=== PATIENT | female | born 1975 | race Caucasian/White ===

== ENCOUNTER 2022-04-24 14:02 | Emergency (ER) | payer MEDICAID ==
[~2022-04-24] VITALS: Ht 157.5 cm; Wt 72.7 kg
[2022-04-24 14:22] LABS: BASOPHILS # (AUTO) 0.1 X10'3 (0-0.2); BASOPHILS % (AUTO) 1.3 % (0-1); EOSINOPHILS # (AUTO) 0.2 X10'3 (0-0.9); EOSINOPHILS % (AUTO) 3.7 % (0-6); HEMATOCRIT 42.7 % (35.0-45.0); LYMPHOCYTES % (AUTO) 29.7 % (21-51); MEAN CORPUSCULAR HEMOGLOBIN 31.6 PG (27.0-31.0); MEAN CORPUSCULAR HGB CONC 32.8 g/dL (33.0-36.5); MEAN CORPUSCULAR VOLUME 96.2 FL (78-98); MEAN PLATELET VOLUME 10.6 FL (7.4-10.4); MONOCYTES # (AUTO) 0.5 X10'3 (0-0.9); MONOCYTES % (AUTO) 7.3 % (2-12); NEUTROPHILS # (AUTO) 3.8 X10'3 (1.8-7.7); PLATELET COUNT 225 X10'3 (140-440); RED BLOOD COUNT 4.44 X10'6 (4.20-5.60); WHITE BLOOD COUNT 6.6 X10'3 (4.5-11.0)
[2022-04-24 14:37] LABS: ALANINE AMINOTRANSFERASE 35 U/L (12-78); ALBUMIN 4.1 G/DL (3.4-5.0); ALKALINE PHOSPHATASE 80 IU/L (46-116); ANION GAP 7 (8-16); ASPARTATE AMINO TRANSFERASE 26 U/L (10-37); BLOOD UREA NITROGEN 7 MG/DL (7-18); BUN/CREATININE RATIO 7.9 (6.6-38.0); CHLORIDE 102 MMOL/L (99-107); CREATININE 0.89 MG/DL (0.40-0.90); GLUCOSE 133 MG/DL (70-104); POTASSIUM 3.7 MMOL/L (3.5-5.1); SODIUM 136 MMOL/L (135-145); TOTAL PROTEIN 8.4 G/DL (6.4-8.2); eGFR 68 ML/MIN
--- NOTE | 2022-04-24 14:37 | NUR ---
PER ARVIND ROBB PT OK TO WAIT FOR RESULTS IN LOBBY
[2022-04-24 14:39] LABS: MAGNESIUM 2.2 MG/DL (1.5-2.4)
[2022-04-24 17:03] VITALS: BP 134/87
[2022-04-24] MEDS ORDERED: PRED10TA23 PO (17:25)
== END 2022-04-24 17:11 | disposition home or self-care (01) ==
LOC: ER 14:03
DX: M32.9 Systemic lupus erythematosus, unspecified (principal); R07.89 Other chest pain
CPT/HCPCS: 36415; 71045; 80053; 83735; 83880; 84484; 85025; 93005; 99285

== ENCOUNTER 2022-11-03 12:25 | Emergency (ER) | payer MEDICAID ==
[~2022-11-03] VITALS: Ht 157.5 cm; Wt 67.3 kg
[2022-11-03] MEDS ORDERED: ondansetron/PF 4mg/2ml inj IV ONE (12:40)
[2022-11-03] MEDS ORDERED: normal saline 1000ML IV soln IVB ONE (12:40)
--- NOTE | 2022-11-03 12:48 | NUR ---
EKG BEING COMPLETED. RN WILL OBTAIN IV ONCE COMPLETE.
[2022-11-03 13:05] LABS: BASOPHILS % (AUTO) 0.6 % (0-1); EOSINOPHILS # (AUTO) 0.2 X10'3 (0-0.9); HEMATOCRIT 40.7 % (35.0-45.0); HEMOGLOBIN 13.6 g/dl (12.0-16.0); LYMPHOCYTES # (AUTO) 1.8 X10'3 (1.1-4.8); MEAN CORPUSCULAR HEMOGLOBIN 32.2 PG (27.0-31.0); MEAN CORPUSCULAR HGB CONC 33.3 g/dL (33.0-36.5); MEAN CORPUSCULAR VOLUME 96.6 FL (78-98); MONOCYTES # (AUTO) 1.3 X10'3 (0-0.9); MONOCYTES % (AUTO) 15.2 % (2-12); NEUTROPHILS # (AUTO) 5.1 X10'3 (1.8-7.7); NEUTROPHILS % (AUTO) 61.2 % (42-75); PLATELET COUNT 295 X10'3 (140-440); RED BLOOD COUNT 4.22 X10'6 (4.20-5.60); RED CELL DISTRIBUTION WIDTH 15.9 % (11.5-14.5); WHITE BLOOD COUNT 8.3 X10'3 (4.5-11.0)
[2022-11-03] MEDS ORDERED: meclizine 12.5mg tablet PO ONE (13:10)
[2022-11-03 13:30] LABS: ALANINE AMINOTRANSFERASE 12 U/L (12-78); ALBUMIN 3.4 G/DL (3.4-5.0); ALBUMIN/GLOBULIN RATIO 0.8 (1.1-1.5); ALKALINE PHOSPHATASE 82 IU/L (46-116); ANION GAP 13 (8-16); ASPARTATE AMINO TRANSFERASE 11 U/L (10-37); BILIRUBIN,TOTAL 1.9 MG/DL (0.1-1.0); BLOOD UREA NITROGEN 7 MG/DL (7-18); BUN/CREATININE RATIO 9.1 (10.0-20.0); CALCIUM 9.3 MG/DL (8.5-10.1); CHLORIDE 95 MMOL/L (99-107); CREATININE 0.77 MG/DL (0.40-0.90); GLUCOSE 105 MG/DL (70-104); MAGNESIUM 1.7 MG/DL (1.5-2.4); PHOSPHORUS 2.4 MG/DL (2.3-4.5); PRO BRAIN NATRIURETIC PEPTIDE 56 PG/ML (0-125); SODIUM 134 MMOL/L (135-145); TOTAL CARBON DIOXIDE 25.7 MMOL/L (24-32); TOTAL PROTEIN 7.6 G/DL (6.4-8.2); eCRCL 70 ML/MIN; eGFR 80 ML/MIN
[2022-11-03 13:34] LABS: POTASSIUM 2.9 MMOL/L (3.5-5.1)
[2022-11-03] MEDS ORDERED: potassium Cl 40MEQ/1/2NS 520ml 520 ML IV ONE (13:35)
[2022-11-03] MEDS ORDERED: METO-292 PO (13:36)
[2022-11-03] MEDS ORDERED: ONDA8TAB13 PO (13:36)
[2022-11-03] MEDS ORDERED: MECL-159 PO (13:36)
[2022-11-03 13:44] LABS: PLATELET ESTIMATE NORMAL; TOTAL CELLS COUNTED 100
--- NOTE | 2022-11-03 13:45 | NUR ---
THIS RN WAS UNABLE TO OBTAIN IV BY US. JOSELYN LANCE IS ATTEMPTING TO OBTAIN IV US AT THIS TIME.
[2022-11-03 13:46] LABS: STOMATOCYTES FEW
[2022-11-03 14:22] LABS: HCG SERUM QL NEGATIVE
[2022-11-03 15:27] LABS: BILIRUBIN,URINE NEGATIVE (Neg); CLARITY,URINE CLEAR (Clear); COLOR,URINE STRAW (Yellow); GLUCOSE, URINE NEGATIVE (Neg); KETONES,URINE NEGATIVE (Neg); LEUKOCYTE ESTERASE ,URINE NEGATIVE (Neg); NITRITES, URINE NEGATIVE (Neg); OCCULT BLOOD,URINE NEGATIVE (Neg); PH,URINE 6.5 (4.8-8.0); PROTEIN,URINE NEGATIVE (Neg); UROBILINOGEN,URINE 0.2 E.U/dL (0.2-1.0)
[2022-11-03 15:31] LABS: UA COLLECTION TYPE CLN CATCH MIDSTREAM
[2022-11-03] MEDS ORDERED: LIDOcaine Viscous 15ml cup MM ONE (18:50)
[2022-11-03] MEDS ORDERED: mag hydrox/Alum hydrox/simeth 30ml oral suspension PO ONE (18:50)
[2022-11-03 20:31] VITALS: BP 103/66; PULSE 85; RESP 18; TEMP 98; O2SAT 97
== END 2022-11-03 20:34 | disposition home or self-care (01) ==
LOC: ER 12:26
DX: R11.2 Nausea with vomiting, unspecified (principal); R42 Dizziness and giddiness; R19.7 Diarrhea, unspecified
CPT/HCPCS: 36415; 71045; 80053; 81003; 83735; 83880; 84100; 84484; 84703; 85007; 85025; 93005; 96365; 96375; 99285; J2405; J3480; J7030; J8597; A6258

== ENCOUNTER 2022-12-02 16:16 | Emergency (ER) | payer MEDICAID ==
[~2022-12-02] VITALS: Ht 154.9 cm; Wt 70.2 kg
[~2022-12-02 16:16] MED LIST: MECL-302 PO; METO-292 PO; ONDA8TAB13 PO
[2022-12-02 16:24] VITALS: BP 141/91; PULSE 99; RESP 16; TEMP 98.5; O2SAT 95
[2022-12-02 16:39] LABS: BASOPHILS # (AUTO) 0.1 X10'3 (0-0.2); BASOPHILS % (AUTO) 0.6 % (0-1); EOSINOPHILS # (AUTO) 0.1 X10'3 (0-0.9); EOSINOPHILS % (AUTO) 0.5 % (0-6); HEMATOCRIT 39.2 % (35.0-45.0); HEMOGLOBIN 12.7 g/dl (12.0-16.0); LYMPHOCYTES # (AUTO) 2.4 X10'3 (1.1-4.8); LYMPHOCYTES % (AUTO) 18.3 % (21-51); MEAN CORPUSCULAR HEMOGLOBIN 31.4 PG (27.0-31.0); MEAN CORPUSCULAR HGB CONC 32.4 g/dL (33.0-36.5); MEAN CORPUSCULAR VOLUME 96.7 FL (78-98); MEAN PLATELET VOLUME 9.3 FL (7.4-10.4); MONOCYTES # (AUTO) 1.2 X10'3 (0-0.9); NEUTROPHILS # (AUTO) 9.3 X10'3 (1.8-7.7); NEUTROPHILS % (AUTO) 71.6 % (42-75); PLATELET COUNT 274 X10'3 (140-440); RED BLOOD COUNT 4.05 X10'6 (4.20-5.60); RED CELL DISTRIBUTION WIDTH 15.1 % (11.5-14.5); WHITE BLOOD COUNT 13.1 X10'3 (4.5-11.0)
[2022-12-02 17:00] LABS: ALANINE AMINOTRANSFERASE 17 U/L (12-78); ALBUMIN 3.2 G/DL (3.4-5.0); ALBUMIN/GLOBULIN RATIO 0.8 (1.1-1.5); ALKALINE PHOSPHATASE 95 IU/L (46-116); ANION GAP 11 (8-16); ASPARTATE AMINO TRANSFERASE 16 U/L (10-37); BILIRUBIN,TOTAL 0.6 MG/DL (0.1-1.0); BLOOD UREA NITROGEN 15 MG/DL (7-18); BUN/CREATININE RATIO 18.1 (10.0-20.0); CALCIUM 8.7 MG/DL (8.5-10.1); CHLORIDE 108 MMOL/L (99-107); CREATININE 0.83 MG/DL (0.40-0.90); GLUCOSE 92 MG/DL (70-104); POTASSIUM 3.7 MMOL/L (3.5-5.1); SODIUM 143 MMOL/L (135-145); TOTAL CARBON DIOXIDE 24.1 MMOL/L (24-32); TOTAL PROTEIN 7.1 G/DL (6.4-8.2); eCRCL 62 ML/MIN; eGFR 73 ML/MIN
[2022-12-02 17:06] LABS: PRO BRAIN NATRIURETIC PEPTIDE < 30 PG/ML (0-125)
== END 2022-12-02 21:01 | disposition left against medical advice (07) ==
LOC: ER 16:17
DX: R07.89 Other chest pain (principal); Z53.21 Procedure and treatment not carried out due to patient leaving prior to being seen by health care provider
CPT/HCPCS: 36415; 71045; 80053; 83880; 84484; 85025; 93005; 99281

== ENCOUNTER 2023-05-31 02:19 | Inpatient (IN) | payer MEDICAID ==
[~2023-05-31] VITALS: Ht 157.5 cm; Wt 106.8 kg
[2023-05-31] VITALS (12 sets, daily range): BP systolic 97–150; BP diastolic 69–107; PULSE 112–136; RESP 20–41; O2SAT 89–100
[2023-05-31] MEDS: normal saline 1000ML IV soln IV ONE (03:45)
[2023-05-31] MEDS: LORazepam 2 mg/ml vial IV ONE (03:57)
[2023-05-31] MEDS: ondansetron/PF 4mg/2ml inj IV ONE ×2 (03:57→06:04)
[2023-05-31] MEDS: pantoprazole 40 MG vial IV ONE (03:58)
[2023-05-31] MEDS: dexamethasone sod phosphate 10mg/ml inj IV STA (03:58)
[2023-05-31 04:15] LABS: ALBUMIN 2.5 G/DL (3.4-5.0); ANION GAP 25 (8-16); BLOOD UREA NITROGEN 13 MG/DL (7-18); BUN/CREATININE RATIO 3.9 (10.0-20.0); CALCIUM 7.1 MG/DL (8.5-10.1); CHLORIDE 76 MMOL/L (99-107); CREATININE 3.37 MG/DL (0.40-0.90); GLUCOSE 84 MG/DL (70-104); LIPASE 43 U/L (16-77); POTASSIUM 4.1 MMOL/L (3.5-5.1); PRO BRAIN NATRIURETIC PEPTIDE 12598 PG/ML (0-125); eCRCL 16 ML/MIN; eGFR 15 ML/MIN
[2023-05-31 04:21] LABS: SODIUM 111 MMOL/L (135-145); TOTAL CARBON DIOXIDE 10.3 MMOL/L (24-32)
[2023-05-31 04:22] LABS: MAGNESIUM 0.7 MG/DL (1.5-2.4)
[2023-05-31] MEDS: LidoCAINE 2% Topical Jelly 11mL syringe TOP ONE ×2 (04:30→15:26)
[2023-05-31 04:39] LABS: BASOPHILS % (AUTO) 0.1 % (0-1); EOSINOPHILS # (AUTO) 0.1 X10'3 (0-0.9); EOSINOPHILS % (AUTO) 0.4 % (0-6); HEMATOCRIT 38.6 % (35.0-45.0); HEMOGLOBIN 12.9 g/dl (12.0-16.0); LYMPHOCYTES # (AUTO) 0.4 X10'3 (1.1-4.8); LYMPHOCYTES % (AUTO) 1.5 % (21-51); MEAN CORPUSCULAR HEMOGLOBIN 33.1 PG (27.0-31.0); MEAN CORPUSCULAR HGB CONC 33.3 g/dL (33.0-36.5); MEAN CORPUSCULAR VOLUME 99.4 FL (78-98); MEAN PLATELET VOLUME 9.1 FL (7.4-10.4); MONOCYTES # (AUTO) 0.3 X10'3 (0-0.9); MONOCYTES % (AUTO) 1.3 % (2-12); NEUTROPHILS # (AUTO) 25.1 X10'3 (1.8-7.7); NEUTROPHILS % (AUTO) 96.7 % (42-75); PLATELET COUNT 106 X10'3 (140-440); RED BLOOD COUNT 3.89 X10'6 (4.20-5.60); RED CELL DISTRIBUTION WIDTH 14.2 % (11.5-14.5)
[2023-05-31 04:48] LABS: WHITE BLOOD COUNT 25.9 X10'3 (4.5-11.0)
[2023-05-31] MEDS: normal saline 1000ml 1,000 ML IV SCH (04:50)
[2023-05-31 05:16] LABS: ABG HCO3 10.6 mmol/L (22.0-26.0); ABG PCO2 (T) 19.5 mmHg (32.0-45.0); ABG PH (T) 7.352 (7.350-7.450); ABG PO2 (T) 76.8 mmHg (75.0-100.0); FCOHb 0.3 % (0.0-3.9); FLOW 6 L/min; FMetHb 0.3 % (0.0-1.5); FO2Hb 94.4 % (94-97); MODE NASAL CANNULA; PATIENT TEMPERATURE 36.5; TOTAL HEMOGLOBIN 11.7 G/dl (12.0-16.0)
[2023-05-31] MEDS: sodium bicarbonate (8.4%) 1 mEq/ml syringe IV ONE (05:24)
[2023-05-31] MEDS: piperacillin/tazo 3.375gm/50ml 50 ML IV ONE (05:28)
[2023-05-31] MEDS: magnesium 2GM in 50ml NS 50 ML IV ONE (05:30)
[2023-05-31] MEDS: diphenhydrAMINE 50 mg/ml inj IV ONE (06:03)
[2023-05-31] MEDS: linezolid 600mg/300ml PREMIX 300 ML IV ONE (06:16)
[2023-05-31 06:43] LABS: BILIRUBIN,URINE NEGATIVE (Neg); CLARITY,URINE CLOUDY (Clear); COLOR,URINE YELLOW (Yellow); GLUCOSE, URINE NEGATIVE (Neg); KETONES,URINE NEGATIVE (Neg); LEUKOCYTE ESTERASE ,URINE MODERATE (Neg); NITRITES, URINE NEGATIVE (Neg); OCCULT BLOOD,URINE LARGE (Neg); PH,URINE 6.5 (4.8-8.0); PROTEIN,URINE >=300 mg/dl (Neg); UROBILINOGEN,URINE 0.2 E.U/dL (0.2-1.0)
[2023-05-31 06:48] LABS: URINE HCG NEGATIVE (NEG)
[2023-05-31 06:50] LABS: UA COLLECTION TYPE FOLEY CATH
[2023-05-31 06:57] LABS: BACTERIA,URINE 4+ /HPF (Neg); CHLORIDE,URINE RANDOM < 50 MEQ/L; MUCUS STRANDS NONE SEEN /LPF (Neg); SODIUM,URINE RANDOM 51 MEQ/L; SQUAMOUS EPITHELIAL CELL,UR FEW /LPF (FEW); WBC CLUMPS,URINE MANY /HPF (NEGATIVE); WBC,URINE TNTC /HPF (0-4)
[2023-05-31] MEDS: levetiracetam inj 1,000 MG in normal saline 100ml IV soln 100 ML IV ONE (07:33)
[2023-05-31] MEDS: metroNIDAZOLE-Flagyl 500mg/NS 100 ML IV SCH (07:55)
[2023-05-31 07:58] LABS: OSMOLALITY UA 169 MOSM/K (50-1400)
[2023-05-31 08:00] LABS: PLATELET ESTIMATE DECREASED; TOTAL CELLS COUNTED 100
[2023-05-31] MEDS ORDERED: dextrose 50%-water 50ml dispensing syringe IV ONE (08:00)
[2023-05-31] MEDS ORDERED: sod chloride 0.9% 10ml flush syringe IV ONE (08:00)
[2023-05-31] MEDS ORDERED: etomidate 2mg/ml inj. ONE (08:00)
[2023-05-31 08:01] LABS: POLYCHROMASIA FEW; TOXIC GRANULATION 1+; TOXIC VACUOLATION 1+
[2023-05-31] MEDS: LORazepam 2 mg/ml vial IV STA (08:06)
[2023-05-31] MEDS: metoclopramide 5 mg/ml inj IV STA (08:07)
[2023-05-31 08:20] LABS: URINE AMPHETAMINE SCREEN NEGATIVE (Neg); URINE BARBITUATE SCREEN NEGATIVE (Neg); URINE BENZODIAZEPINES SCREEN NEGATIVE (Neg); URINE CANNABINOID SCREEN POSITIVE (Neg); URINE COCAINE SCREEN NEGATIVE (Neg); URINE METHADONE SCREEN NEGATIVE (Neg); URINE OPIATE SCREEN NEGATIVE (Neg); URINE PHENCYCLIDINE SCREEN NEGATIVE (Neg)
[2023-05-31] MEDS: acetaminophen 650mg rectal suppository RC STA (08:23)
[2023-05-31] MEDS: succinylcholine 20mg/ml inj IV ONE (08:47)
[2023-05-31] MEDS ORDERED: PRE1T PO (09:17)
[2023-05-31] MEDS ORDERED: CYAN10007 IM (09:17)
[2023-05-31] MEDS ORDERED: RIVA20TA PO (09:17)
[2023-05-31] MEDS ORDERED: GABA300C PO (09:17)
[2023-05-31] MEDS ORDERED: PRE5T PO (09:17)
[2023-05-31] MEDS ORDERED: HYDR200T73 PO (09:17)
[2023-05-31] MEDS ORDERED: MODA100T31 PO (09:17)
[2023-05-31] MEDS ORDERED: MECL-302 PO (09:17)
[2023-05-31] MEDS ORDERED: OMEP20CA16 PO (09:17)
[2023-05-31] MEDS: midazolam 1 mg/ML 2ml injection ONE (09:20)
[2023-05-31] MEDS: midazolam 1 mg/ML 2ml injection IV STA (09:20)
[2023-05-31] MEDS ORDERED: propofol (Diprivan) 10mg/ml 100ml bottle IV ONE (09:26)
[2023-05-31] MEDS ORDERED: midazolam 100mg in NS 100ml 100 ML IV SCH (09:30)
[2023-05-31 09:31] LABS: ABG BASE EXCESS -13.1 mmol/L (-2.0-2.0); ABG HCO3 10.5 mmol/L (22.0-26.0); ABG OXYGEN SATURATION 97.5 % (94-97); ABG PCO2 (T) 22.7 mmHg (32.0-45.0); ABG PH (T) 7.295 (7.350-7.450); ABG PO2 (T) 127.8 mmHg (75.0-100.0); ALLEN'S TEST POSITIVE; FCOHb 0.3 % (0.0-3.9); FHHb 2.5 % (0.0-5.0); FMetHb 0.3 % (0.0-1.5); FO2Hb 96.9 % (94-97); MODE VENT - AC/PRVC; PATIENT TEMPERATURE 39.9; PEEP 5 cm H2O; RESPIRATORY RATE 18 b/min; TIDAL VOLUME 475 mL
[2023-05-31] MEDS: FENTANYL-0.9 % NACL/PF 100 ML IV SCH (09:47)
[2023-05-31] MEDS: propofol 1000mg/100ml bottle 100 ML IV SCH (09:48)
[2023-05-31] MEDS ORDERED: ringers solution, lactated 500ml IV solution IV ONE (11:00)
[2023-05-31 11:19] LABS: BASOPHILS % (AUTO) 0.1 % (0-1); EOSINOPHILS # (AUTO) 0.1 X10'3 (0-0.9); EOSINOPHILS % (AUTO) 1.2 % (0-6); HEMATOCRIT 39.5 % (35.0-45.0); LYMPHOCYTES # (AUTO) 0.2 X10'3 (1.1-4.8); LYMPHOCYTES % (AUTO) 1.7 % (21-51); MEAN CORPUSCULAR HEMOGLOBIN 32.9 PG (27.0-31.0); MEAN CORPUSCULAR HGB CONC 32.9 g/dL (33.0-36.5); MEAN PLATELET VOLUME 8.6 FL (7.4-10.4); MONOCYTES # (AUTO) 0.1 X10'3 (0-0.9); NEUTROPHILS # (AUTO) 11.1 X10'3 (1.8-7.7); PLATELET COUNT 59 X10'3 (140-440); RED BLOOD COUNT 3.94 X10'6 (4.20-5.60); RED CELL DISTRIBUTION WIDTH 14.3 % (11.5-14.5); WHITE BLOOD COUNT 11.6 X10'3 (4.5-11.0)
[2023-05-31] MEDS: ringers solution, lacted 1,000 ML IV ONE (11:22)
[2023-05-31] MEDS: NORepinephrine 8mg/ 250ml NS 250 ML IV SCH (11:50)
[2023-05-31] MEDS: ringers solution, lacted 1,000 ML IV SCH ×2 (11:56→12:56)
[2023-05-31 12:05] LABS: ALANINE AMINOTRANSFERASE 34 U/L (12-78); ALBUMIN 1.5 G/DL (3.4-5.0); ALBUMIN/GLOBULIN RATIO 0.6 (1.1-1.5); ALKALINE PHOSPHATASE 86 IU/L (46-116); ANION GAP 18 (8-16); ASPARTATE AMINO TRANSFERASE 56 U/L (10-37); BILIRUBIN,TOTAL 1.5 MG/DL (0.1-1.0); BLOOD UREA NITROGEN 12 MG/DL (7-18); BUN/CREATININE RATIO 3.7 (10.0-20.0); CHLORIDE 85 MMOL/L (99-107); CREATININE 3.21 MG/DL (0.40-0.90); GLUCOSE 65 MG/DL (70-104); POTASSIUM 3.8 MMOL/L (3.5-5.1); eCRCL 17 ML/MIN; eGFR 15 ML/MIN
[2023-05-31 12:15] LABS: CALCIUM 5.6 MG/DL (8.5-10.1); SODIUM 116 MMOL/L (135-145); TOTAL CARBON DIOXIDE 12.6 MMOL/L (24-32)
[2023-05-31] MEDS: ringers solution, lacted 1,000 ML IV STA ×2 (12:54→12:55)
[2023-05-31] MEDS: albumin (human) 25% 100 ML IV solution IV STA (13:24)
[2023-05-31] MEDS ORDERED: magnesium hydroxide 30ml (MOM) UD suspension PO PRN (14:35)
[2023-05-31] MEDS ORDERED: acetaminophen 325mg tablet PO PRN ×2 (14:35)
[2023-05-31] MEDS: LIDOcaine 2% 10ml TOPICAL JELLY (Urojet) TP ONE (15:03)
[2023-05-31] MEDS: albumin (Human) 5% 250ml 250 ML IV SCH (15:03)
[2023-05-31] MEDS: heparin, porcine 5000 units/ml vial SQ SCH (16:00)
[2023-05-31] MEDS: piperacillin/tazo 3.375gm/50ml 50 ML IV SCH (17:24)
[2023-05-31] MEDS: dextrose 50%-water 50ml dispensing syringe IV STA (19:06)
[2023-05-31] MEDS ORDERED: DEXTROSE 20% IN WATER 500mL 500 ML IV SCH (19:10)
[2023-05-31] MEDS: WATER IV SCH (20:39)
[2023-05-31] MEDS: DEXTROSE 20% IV SCH (20:39)
[2023-05-31] MEDS: linezolid 600mg/300ml PREMIX 300 ML IV SCH (20:41)
[2023-05-31 23:34] LABS: ALBUMIN 3.3 G/DL (3.4-5.0); BLOOD UREA NITROGEN 13 MG/DL (7-18); BUN/CREATININE RATIO 3.8 (10.0-20.0); GLUCOSE 159 MG/DL (70-104); MAGNESIUM 1.1 MG/DL (1.5-2.4); PHOSPHORUS 4.1 MG/DL (2.3-4.5); eCRCL 16 ML/MIN; eGFR 14 ML/MIN
[2023-05-31 23:57] LABS: ANION GAP 24 (8-16); CHLORIDE 83 MMOL/L (99-107); POTASSIUM 3.8 MMOL/L (3.5-5.1)
[2023-06-01] VITALS (32 sets, daily range): BP systolic 73–134; BP diastolic 54–86; PULSE 100–132; RESP 17–31; O2SAT 90–99
[2023-06-01 00:05] LABS: SODIUM 116 MMOL/L (135-145); TOTAL CARBON DIOXIDE 9.4 MMOL/L (24-32)
[2023-06-01] MEDS: NORepinephrine inj. 32 MG in normal saline 250ml IV soln 218 ML IV SCH (00:05)
[2023-06-01 00:06] LABS: CALCIUM 5.9 MG/DL (8.5-10.1)
[2023-06-01] MEDS: hydrocortisone sod succ/PF 100mg/2ml inj. IV SCH (00:21)
[2023-06-01] MEDS ORDERED: magnesium 2GM in 50ml NS 50 ML IV PRN (00:30)
[2023-06-01] MEDS ORDERED: dextrose 50%-water 250 ML in Dextrose 10%-water IV solution 750 ML IV PRN (00:30)
[2023-06-01] MEDS: CALCIUM GLUC 1gm/50ml NACL,iso 50 ML IV ONE (00:43)
[2023-06-01] MEDS: magnesium 4gm in 100ml NS 100 ML IV PRN (00:46)
[2023-06-01] MEDS: sodium bicarbonate (8.4%) inj. 150 MEQ in dextrose 5%-water 1,000 ML IV SCH (01:20)
[2023-06-01 03:16] LABS: ABG HCO3 11.4 mmol/L (22.0-26.0); ABG OXYGEN SATURATION 92.9 % (94-97); ABG PCO2 (T) 26.5 mmHg (32.0-45.0); ABG PH (T) 7.255 (7.350-7.450); ABG PO2 (T) 75.1 mmHg (75.0-100.0); ALLEN'S TEST Modified; FCOHb 0.3 % (0.0-3.9); FHHb 7.1 % (0.0-5.0); FMetHb 0.3 % (0.0-1.5); FO2Hb 92.3 % (94-97); MODE VENT - PRVC; PEEP 5 cm H2O; RESPIRATORY RATE 18 b/min; TIDAL VOLUME 475 mL
[2023-06-01 06:18] LABS: BASOPHILS % (AUTO) 0.1 % (0-1); HEMATOCRIT 29.9 % (35.0-45.0); LYMPHOCYTES # (AUTO) 0.4 X10'3 (1.1-4.8); MONOCYTES # (AUTO) 0.8 X10'3 (0-0.9); RED BLOOD COUNT 3.01 X10'6 (4.20-5.60)
[2023-06-01 06:23] LABS: EOSINOPHILS % (AUTO) 14.8 % (0-6); HEMOGLOBIN 9.9 g/dl (12.0-16.0); MEAN CORPUSCULAR HEMOGLOBIN 32.8 PG (27.0-31.0); MEAN CORPUSCULAR VOLUME 99.3 FL (78-98); MEAN PLATELET VOLUME 9.2 FL (7.4-10.4); MONOCYTES % (AUTO) 1.9 % (2-12); NEUTROPHILS # (AUTO) 33.2 X10'3 (1.8-7.7); NEUTROPHILS % (AUTO) 82.2 % (42-75); RED CELL DISTRIBUTION WIDTH 14.5 % (11.5-14.5)
[2023-06-01 06:31] LABS: PLATELET COUNT 41 X10'3 (140-440); WHITE BLOOD COUNT 40.4 X10'3 (4.5-11.0)
[2023-06-01 06:35] LABS: ALANINE AMINOTRANSFERASE 38 U/L (12-78); ALBUMIN/GLOBULIN RATIO 1.4 (1.1-1.5); ALKALINE PHOSPHATASE 58 IU/L (46-116); ANION GAP 23 (8-16); ASPARTATE AMINO TRANSFERASE 86 U/L (10-37); BILIRUBIN,TOTAL 2.8 MG/DL (0.1-1.0); BLOOD UREA NITROGEN 12 MG/DL (7-18); BUN/CREATININE RATIO 3.6 (10.0-20.0); CALCIUM 6.3 MG/DL (8.5-10.1); CHLORIDE 85 MMOL/L (99-107); CREATININE 3.37 MG/DL (0.40-0.90); GLUCOSE 142 MG/DL (70-104); MAGNESIUM 2.3 MG/DL (1.5-2.4); PHOSPHORUS 4.1 MG/DL (2.3-4.5); POTASSIUM 4.1 MMOL/L (3.5-5.1); TOTAL PROTEIN 5.2 G/DL (6.4-8.2); eCRCL 16 ML/MIN; eGFR 15 ML/MIN
[2023-06-01 06:54] LABS: SODIUM 120 MMOL/L (135-145); TOTAL CARBON DIOXIDE 11.6 MMOL/L (24-32)
[2023-06-01] MEDS: pantoprazole 40MG/NS 100ML BAG 100 ML IV SCH ×2 (07:25→19:01)
[2023-06-01] MEDS: thiamine 100mg/ml 2ml inj. IV ONE (07:25)
[2023-06-01] MEDS: folic acid 1mg/0.2ml inj IV SCH (07:32)
[2023-06-01 07:43] LABS: PLATELET ESTIMATE DECREASED; TOTAL CELLS COUNTED 100
[2023-06-01] MEDS ORDERED: dextrose 50%-water 50ml dispensing syringe IV PRN ×2 (11:35)
[2023-06-01] MEDS ORDERED: DEXTROSE 15 GM of carb/4 tabs (each vial/BOTTLE has 4 tablets) PO PRN ×2 (11:35)
[2023-06-01] MEDS ORDERED: glucagon, human recombinant 1mg kit SUBCUT PRN (11:35)
[2023-06-01] MEDS: mineral oil/petrolatum ophthal oint EACHEYE PRN (14:41)
[2023-06-01] MEDS ORDERED: DEXTROSE 15 GM of carb/4 tabs (each vial/BOTTLE has 4 tablets) OGT PRN ×2 (14:58)
[2023-06-01] MEDS ORDERED: magnesium hydroxide 30ml (MOM) UD suspension OGT PRN (14:59)
[2023-06-01] MEDS ORDERED: hydrocortisone sod succ/PF 250mg/2ml inj. IV SCH ×2 (16:00)
[2023-06-01] MEDS ORDERED: fludrocortisone acetate 0.1mg tablet PO SCH (20:00)
[2023-06-01] MEDS: fludrocortisone acetate 0.1mg tablet PO SCH (20:36)
[2023-06-01] MEDS: insulin glargine (Lantus) pen - multi-dose SQ SCH (20:41)
[2023-06-01] MEDS: insulin regular, human U-100 3ml vial - multi-dose SQ SCH (20:42)
[2023-06-02] VITALS (39 sets, daily range): BP systolic 9–155; BP diastolic 36–95; PULSE 76–114; RESP 17–22; O2SAT 90–99
[2023-06-02 02:43] LABS: ALANINE AMINOTRANSFERASE 34 U/L (12-78); ALBUMIN 2.2 G/DL (3.4-5.0); ALBUMIN/GLOBULIN RATIO 0.9 (1.1-1.5); ALKALINE PHOSPHATASE 85 IU/L (46-116); ASPARTATE AMINO TRANSFERASE 52 U/L (10-37); BILIRUBIN,TOTAL 2.5 MG/DL (0.1-1.0); BLOOD UREA NITROGEN 16 MG/DL (7-18); BUN/CREATININE RATIO 4.4 (10.0-20.0); GLUCOSE 207 MG/DL (70-104); MAGNESIUM 1.7 MG/DL (1.5-2.4); PHOSPHORUS 4.4 MG/DL (2.3-4.5); PREALBUMIN 5.3 MG/DL (19-36); TOTAL CARBON DIOXIDE 23.5 MMOL/L (24-32); TOTAL PROTEIN 4.7 G/DL (6.4-8.2); eCRCL 15 ML/MIN; eGFR 13 ML/MIN
[2023-06-02 02:52] LABS: ANION GAP 15 (8-16); CHLORIDE 81 MMOL/L (99-107); POTASSIUM 3.4 MMOL/L (3.5-5.1)
[2023-06-02 02:57] LABS: CALCIUM 5.4 MG/DL (8.5-10.1); SODIUM 119 MMOL/L (135-145)
[2023-06-02 02:58] LABS: BASOPHILS # (AUTO) 0.1 X10'3 (0-0.2); BASOPHILS % (AUTO) 0.1 % (0-1); EOSINOPHILS % (AUTO) 2.2 % (0-6); HEMATOCRIT 32.5 % (35.0-45.0); HEMOGLOBIN 10.7 g/dl (12.0-16.0); LYMPHOCYTES # (AUTO) 0.4 X10'3 (1.1-4.8); MEAN CORPUSCULAR HEMOGLOBIN 32.4 PG (27.0-31.0); MEAN CORPUSCULAR HGB CONC 32.9 g/dL (33.0-36.5); MEAN CORPUSCULAR VOLUME 98.5 FL (78-98); MEAN PLATELET VOLUME 9.2 FL (7.4-10.4); MONOCYTES # (AUTO) 1.4 X10'3 (0-0.9); MONOCYTES % (AUTO) 3.1 % (2-12); NEUTROPHILS # (AUTO) 40.8 X10'3 (1.8-7.7); NEUTROPHILS % (AUTO) 93.6 % (42-75); RED CELL DISTRIBUTION WIDTH 14.5 % (11.5-14.5)
[2023-06-02 03:54] LABS: WHITE BLOOD COUNT 43.7 X10'3 (4.5-11.0)
[2023-06-02 03:55] LABS: PLATELET COUNT 17 X10'3 (140-440)
[2023-06-02 04:02] LABS: ABG BASE EXCESS -4.7 mmol/L (-2.0-2.0); ABG HCO3 22.4 mmol/L (22.0-26.0); ABG OXYGEN SATURATION 86.8 % (94-97); ABG PCO2 (T) 47.3 mmHg (32.0-45.0); ABG PH (T) 7.288 (7.350-7.450); ABG PO2 (T) 52.3 mmHg (75.0-100.0); FCOHb 0.3 % (0.0-3.9); FHHb 13.1 % (0.0-5.0); FMetHb 0.3 % (0.0-1.5); FO2Hb 86.3 % (94-97); MODE VENT - PRVC; PATIENT TEMPERATURE 35.8; PEEP 8 cm H2O; RESPIRATORY RATE 18 b/min; TIDAL VOLUME 475 mL; TOTAL HEMOGLOBIN 11.9 G/dl (12.0-16.0)
[2023-06-02] MEDS: CALCIUM GLUC 1gm/50ml NACL,iso 50 ML IV ONE ×2 (04:26→05:05)
[2023-06-02] MEDS: normal saline 1000ml 1,000 ML IV SCH (04:27)
[2023-06-02 07:41] LABS: BILIRUBIN,URINE NEGATIVE (Neg); CLARITY,URINE CLOUDY (Clear); COLOR,URINE YELLOW (Yellow); GLUCOSE, URINE NEGATIVE (Neg); KETONES,URINE NEGATIVE (Neg); LEUKOCYTE ESTERASE ,URINE MODERATE (Neg); NITRITES, URINE NEGATIVE (Neg); OCCULT BLOOD,URINE LARGE (Neg); PROTEIN,URINE >=300 mg/dl (Neg); UROBILINOGEN,URINE 0.2 E.U/dL (0.2-1.0)
[2023-06-02 07:51] LABS: SQUAMOUS EPITHELIAL CELL,UR MODERATE /LPF (FEW); UA COLLECTION TYPE NON-SPECIFIED
[2023-06-02 07:52] LABS: RBC,URINE 50-100 /HPF (0-2); WBC CLUMPS,URINE MODERATE /HPF (NEGATIVE); WBC,URINE 50-100 /HPF (0-4)
[2023-06-02 07:53] LABS: BACTERIA,URINE 2+ /HPF (Neg)
[2023-06-02 07:55] LABS: AMORPHOUS URATES 1+
[2023-06-02 08:10] LABS: TOTAL PROTEIN,URINE RANDOM 350.6 MG/DL
[2023-06-02 08:33] LABS: TOTAL CELLS COUNTED 100
[2023-06-02 08:35] LABS: TOXIC GRANULATION 1+
[2023-06-02] MEDS: ipratropium 0.5 MG/2.5ML nebule NEB PRN (11:03)
[2023-06-02] MEDS: thiamine 100mg/ml 2ml inj. IV SCH (12:00)
[2023-06-02] MEDS: cyanocobalamin 500mcg tablet OGT SCH (12:00)
[2023-06-02] MEDS: cholecalciferol (vitamin D3) 1,000 unit (25mcg) tablet OGT SCH (12:00)
[2023-06-02] MEDS: calcium carbonate 500mg chew tablet OGT SCH (12:00)
[2023-06-02] MEDS: MULTIVIT-MIN/FERROUS GLUCONATE 9 MG/15 ML LIQUID OGT SCH (12:00)
[2023-06-02] MEDS ORDERED: magnesium 4gm in 100ml NS 100 ML IV PRN (12:35)
[2023-06-02] MEDS ORDERED: calcium chloride inj. 1,000 MG in normal saline 100ml IV soln 100 ML IV PRN (12:35)
[2023-06-02] MEDS ORDERED: Duosol 4K/3 Ca (w/calcium) 5,000 ML HE SCH (12:35)
[2023-06-02] MEDS: BICARB DIALYSIS 4K/3 Ca2+sol 5,000 ML HE SCH (12:55)
[2023-06-02 15:14] LABS: HEMOGLOBIN 9.9 g/dl (12.0-16.0)
[2023-06-02 15:16] LABS: HEMATOCRIT 29.8 % (35.0-45.0); MEAN CORPUSCULAR HEMOGLOBIN 32.3 PG (27.0-31.0); MEAN CORPUSCULAR HGB CONC 33.2 g/dL (33.0-36.5); MEAN CORPUSCULAR VOLUME 97.4 FL (78-98); MEAN PLATELET VOLUME 8.8 FL (7.4-10.4); RED BLOOD COUNT 3.06 X10'6 (4.20-5.60); RED CELL DISTRIBUTION WIDTH 14.4 % (11.5-14.5)
[2023-06-02 15:20] LABS: PLATELET COUNT 17 X10'3 (140-440); WHITE BLOOD COUNT 37.4 X10'3 (4.5-11.0)
[2023-06-02 15:30] LABS: ALBUMIN 1.7 G/DL (3.4-5.0); ANION GAP 12 (8-16); BLOOD UREA NITROGEN 16 MG/DL (7-18); CHLORIDE 94 MMOL/L (99-107); CREATININE 2.67 MG/DL (0.40-0.90); GLUCOSE 77 MG/DL (70-104); MAGNESIUM 1.5 MG/DL (1.5-2.4); PHOSPHORUS 3.3 MG/DL (2.3-4.5); POTASSIUM 3.4 MMOL/L (3.5-5.1); SODIUM 128 MMOL/L (135-145); TOTAL CARBON DIOXIDE 22.5 MMOL/L (24-32); eGFR 19 ML/MIN
[2023-06-02] MEDS: fentaNYL 2,500 MCG in Normal Saline 250ml IV soln bag IV SCH (15:30)
[2023-06-02 15:47] LABS: CALCIUM CVVH 5.3 MG/DL (8.5-10.1)
[2023-06-02 16:01] LABS: ABG BASE EXCESS -4.7 mmol/L (-2.0-2.0); ABG HCO3 21.6 mmol/L (22.0-26.0); ABG OXYGEN SATURATION 92.2 % (94-97); ABG PCO2 (T) 44.7 mmHg (32.0-45.0); ABG PH (T) 7.302 (7.350-7.450); ABG PO2 (T) 65.9 mmHg (75.0-100.0); ALLEN'S TEST POSITIVE; FCOHb 0.3 % (0.0-3.9); FHHb 7.8 % (0.0-5.0); FMetHb 0.3 % (0.0-1.5); FO2Hb 91.6 % (94-97); MODE VENT - AC; PATIENT TEMPERATURE 37.2; PEEP 15 cm H2O; RESPIRATORY RATE 22 b/min; TIDAL VOLUME 375 mL; TOTAL HEMOGLOBIN 11.9 G/dl (12.0-16.0)
[2023-06-02 16:55] LABS: BASOPHILS # (AUTO) 0.1 X10'3 (0-0.2); BASOPHILS % (AUTO) 0.2 % (0-1)
[2023-06-02 16:56] LABS: EOSINOPHILS % (AUTO) 0.1 % (0-6); HEMATOCRIT 23.8 % (35.0-45.0); HEMOGLOBIN 7.8 g/dl (12.0-16.0); LYMPHOCYTES # (AUTO) 0.4 X10'3 (1.1-4.8); LYMPHOCYTES % (AUTO) 1.2 % (21-51); MEAN CORPUSCULAR HEMOGLOBIN 32.1 PG (27.0-31.0); MEAN CORPUSCULAR HGB CONC 32.6 g/dL (33.0-36.5); MEAN CORPUSCULAR VOLUME 98.5 FL (78-98); MEAN PLATELET VOLUME 8.7 FL (7.4-10.4); MONOCYTES # (AUTO) 1.8 X10'3 (0-0.9); MONOCYTES % (AUTO) 5.6 % (2-12); NEUTROPHILS # (AUTO) 29.9 X10'3 (1.8-7.7); NEUTROPHILS % (AUTO) 92.9 % (42-75); RED BLOOD COUNT 2.42 X10'6 (4.20-5.60); RED CELL DISTRIBUTION WIDTH 14.8 % (11.5-14.5)
[2023-06-02] MEDS: calcium chloride inj. 10,000 MG in normal saline 500ml IV soln 400 ML IV PRN (16:56)
[2023-06-02 16:57] LABS: TOTAL CELLS COUNTED 100; TOXIC GRANULATION 1+
[2023-06-02 17:01] LABS: PLATELET COUNT 11 X10'3 (140-440); WHITE BLOOD COUNT 32.2 X10'3 (4.5-11.0)
[2023-06-02 17:23] LABS: % IRON SATURATION 20 % (11-46); IRON 12 UG/DL (49-151); TOTAL IRON BINDING CAPACITY 60 UG/DL (259-388)
[2023-06-02 17:27] LABS: BASOPHILS % (AUTO) 0.1 % (0-1); EOSINOPHILS # (AUTO) 0.2 X10'3 (0-0.9); EOSINOPHILS % (AUTO) 0.6 % (0-6); HEMATOCRIT 25.5 % (35.0-45.0); HEMOGLOBIN 8.3 g/dl (12.0-16.0); LYMPHOCYTES # (AUTO) 0.4 X10'3 (1.1-4.8); LYMPHOCYTES % (AUTO) 1.2 % (21-51); MEAN CORPUSCULAR HGB CONC 32.6 g/dL (33.0-36.5); MEAN CORPUSCULAR VOLUME 98.1 FL (78-98); MEAN PLATELET VOLUME 8.4 FL (7.4-10.4); MONOCYTES # (AUTO) 1.7 X10'3 (0-0.9); MONOCYTES % (AUTO) 4.9 % (2-12); NEUTROPHILS # (AUTO) 31.6 X10'3 (1.8-7.7); NEUTROPHILS % (AUTO) 93.2 % (42-75); RED CELL DISTRIBUTION WIDTH 14.3 % (11.5-14.5)
[2023-06-02 17:34] LABS: ALBUMIN 1.3 G/DL (3.4-5.0); ANION GAP 7 (8-16); BLOOD UREA NITROGEN 12 MG/DL (7-18); BUN/CREATININE RATIO 6.5 (10.0-20.0); CHLORIDE 104 MMOL/L (99-107); CREATININE 1.86 MG/DL (0.40-0.90); GLUCOSE 55 MG/DL (70-104); PHOSPHORUS 2.3 MG/DL (2.3-4.5); SODIUM 133 MMOL/L (135-145); TOTAL CARBON DIOXIDE 21.7 MMOL/L (24-32); eGFR 29 ML/MIN
[2023-06-02 17:39] LABS: ALBUMIN 1.3 G/DL (3.4-5.0); ANION GAP 12 (8-16); BLOOD UREA NITROGEN 12 MG/DL (7-18); BUN/CREATININE RATIO 6.7 (10.0-20.0); CHLORIDE 104 MMOL/L (99-107); GLUCOSE 50 MG/DL (70-104); MAGNESIUM 1.1 MG/DL (1.5-2.4); PHOSPHORUS 2.3 MG/DL (2.3-4.5); SODIUM 136 MMOL/L (135-145); TOTAL CARBON DIOXIDE 19.8 MMOL/L (24-32); eGFR 30 ML/MIN
[2023-06-02 17:48] LABS: PLATELET COUNT 11 X10'3 (140-440)
[2023-06-02 17:51] LABS: FERRITIN 125 NG/ML (8-252)
[2023-06-02 17:53] LABS: POTASSIUM 2.6 MMOL/L (3.5-5.1)
[2023-06-02 17:54] LABS: CALCIUM CVVH 4.3 MG/DL (8.5-10.1)
[2023-06-02 17:55] LABS: POTASSIUM 2.7 MMOL/L (3.5-5.1)
[2023-06-02 17:56] LABS: CALCIUM CVVH 4.5 MG/DL (8.5-10.1)
[2023-06-02 18:19] LABS: EOSINOPHILS % (AUTO) 0.1 % (0-6)
[2023-06-02 18:32] LABS: BASOPHILS % (AUTO) 0.1 % (0-1); HEMATOCRIT 27.2 % (35.0-45.0); HEMOGLOBIN 8.6 g/dl (12.0-16.0); LYMPHOCYTES # (AUTO) 0.5 X10'3 (1.1-4.8); LYMPHOCYTES % (AUTO) 1.4 % (21-51); MEAN CORPUSCULAR HEMOGLOBIN 31.9 PG (27.0-31.0); MEAN CORPUSCULAR HGB CONC 31.8 g/dL (33.0-36.5); MEAN CORPUSCULAR VOLUME 100.3 FL (78-98); MEAN PLATELET VOLUME 8.8 FL (7.4-10.4); MONOCYTES # (AUTO) 1.9 X10'3 (0-0.9); MONOCYTES % (AUTO) 5.4 % (2-12); NEUTROPHILS # (AUTO) 33.1 X10'3 (1.8-7.7); RED BLOOD COUNT 2.71 X10'6 (4.20-5.60); RED CELL DISTRIBUTION WIDTH 14.9 % (11.5-14.5)
[2023-06-02 18:35] LABS: WHITE BLOOD COUNT 35.6 X10'3 (4.5-11.0)
[2023-06-02 18:36] LABS: PLATELET COUNT 11 X10'3 (140-440)
[2023-06-02] MEDS: potassium Cl 40MEQ/270ML bag 270 ML IV PRN (18:37)
[2023-06-02 18:43] LABS: ALBUMIN 1.4 G/DL (3.4-5.0); ANION GAP -39 (8-16); BLOOD UREA NITROGEN 13 MG/DL (7-18); BUN/CREATININE RATIO 7.1 (10.0-20.0); CHLORIDE 144 MMOL/L (99-107); CREATININE 1.83 MG/DL (0.40-0.90); GLUCOSE 51 MG/DL (70-104); PHOSPHORUS 2.1 MG/DL (2.3-4.5); SODIUM 123 MMOL/L (135-145); TOTAL CARBON DIOXIDE 17.6 MMOL/L (24-32); eGFR 29 ML/MIN
[2023-06-02] MEDS: dextrose 50%-water 50ml dispensing syringe IV PRN (19:07)
[2023-06-02 19:09] LABS: MAGNESIUM 1.1 MG/DL (1.5-2.4)
[2023-06-02 19:28] LABS: CALCIUM CVVH 4.4 MG/DL (8.5-10.1); POTASSIUM 2.8 MMOL/L (3.5-5.1)
[2023-06-02] MEDS: fludrocortisone acetate 0.1mg tablet OGT SCH (20:00)
[2023-06-02] MEDS: piperacillin/tazo 3.375gm/50ml 50 ML IV SCH (20:37)
[2023-06-02] MEDS: sodium phosphate inj. 30 MMOL in dextrose 5%-water 250 ML IV PRN (20:40)
[2023-06-02 22:00] LABS: ANION GAP 9 (8-16); BLOOD UREA NITROGEN 13 MG/DL (7-18); BUN/CREATININE RATIO 6.5 (10.0-20.0); CHLORIDE 97 MMOL/L (99-107); CREATININE 2.01 MG/DL (0.40-0.90); GLUCOSE 84 MG/DL (70-104); MAGNESIUM 2.6 MG/DL (1.5-2.4); PHOSPHORUS 3.2 MG/DL (2.3-4.5); POTASSIUM 4.5 MMOL/L (3.5-5.1); SODIUM 129 MMOL/L (135-145); TOTAL CARBON DIOXIDE 23.4 MMOL/L (24-32); eCRCL 27 ML/MIN; eGFR 26 ML/MIN
[2023-06-02 22:11] LABS: HEMATOCRIT 33.2 % (35.0-45.0); HEMOGLOBIN 11.1 g/dl (12.0-16.0); MEAN CORPUSCULAR HGB CONC 33.3 g/dL (33.0-36.5); RED BLOOD COUNT 3.43 X10'6 (4.20-5.60)
[2023-06-02 22:12] LABS: MEAN CORPUSCULAR HEMOGLOBIN 32.2 PG (27.0-31.0); MEAN CORPUSCULAR VOLUME 96.8 FL (78-98); MEAN PLATELET VOLUME 8.7 FL (7.4-10.4); RED CELL DISTRIBUTION WIDTH 14.5 % (11.5-14.5)
[2023-06-02 22:19] LABS: CALCIUM 14.2 MG/DL (8.5-10.1)
[2023-06-02 22:37] LABS: WHITE BLOOD COUNT 40.4 X10'3 (4.5-11.0)
[2023-06-02 22:40] LABS: PLATELET COUNT 13 X10'3 (140-440)
[2023-06-02 23:34] LABS: NUCLEATED RED BLOOD CELLS 1 /100WBC (0-0); PLATELET ESTIMATE DECREASED; TOTAL CELLS COUNTED 100
[2023-06-02 23:35] LABS: TOXIC GRANULATION 1+
[2023-06-03] VITALS (34 sets, daily range): BP systolic 85–144; BP diastolic 49–88; PULSE 68–98; RESP 22; O2SAT 91–100
[2023-06-03 00:05] LABS: PLATELET ESTIMATE DECREASED
[2023-06-03 00:06] LABS: PLATELET ESTIMATE DECREASED
[2023-06-03 00:47] LABS: HEMOGLOBIN 10.5 g/dl (12.0-16.0); RED BLOOD COUNT 3.25 X10'6 (4.20-5.60)
[2023-06-03 00:49] LABS: HEMATOCRIT 31.6 % (35.0-45.0); MEAN CORPUSCULAR HEMOGLOBIN 32.3 PG (27.0-31.0); MEAN CORPUSCULAR HGB CONC 33.3 g/dL (33.0-36.5); MEAN CORPUSCULAR VOLUME 97.1 FL (78-98); MEAN PLATELET VOLUME 8.9 FL (7.4-10.4); RED CELL DISTRIBUTION WIDTH 14.3 % (11.5-14.5)
[2023-06-03 00:53] LABS: PLATELET COUNT 12 X10'3 (140-440); WHITE BLOOD COUNT 37.7 X10'3 (4.5-11.0)
[2023-06-03 00:57] LABS: ALBUMIN 1.8 G/DL (3.4-5.0); ANION GAP 7 (8-16); BLOOD UREA NITROGEN 14 MG/DL (7-18); BUN/CREATININE RATIO 6.6 (10.0-20.0); CALCIUM CVVH 9.9 MG/DL (8.5-10.1); CHLORIDE 96 MMOL/L (99-107); CREATININE 2.11 MG/DL (0.40-0.90); GLUCOSE 84 MG/DL (70-104); LACTATE DEHYDROGENASE 300 U/L (81-234); MAGNESIUM 2.4 MG/DL (1.5-2.4); PHOSPHORUS 4.8 MG/DL (2.3-4.5); POTASSIUM 4.5 MMOL/L (3.5-5.1); SODIUM 128 MMOL/L (135-145); eGFR 25 ML/MIN
[2023-06-03 03:30] LABS: PLATELET ESTIMATE DECREASED; TOTAL CELLS COUNTED 100; TOXIC GRANULATION 1+
[2023-06-03 03:36] LABS: CALCIUM 9.4 MG/DL (8.5-10.1)
[2023-06-03 03:49] LABS: RHEUM FACTOR QUAL REFLEX TITER NEGATIVE (Neg)
[2023-06-03 06:05] LABS: BASOPHILS % (AUTO) 0.1 % (0-1); EOSINOPHILS % (AUTO) 0 % (0-6); HEMATOCRIT 32.9 % (35.0-45.0); LYMPHOCYTES # (AUTO) 0.5 X10'3 (1.1-4.8); LYMPHOCYTES % (AUTO) 1.3 % (21-51); MEAN CORPUSCULAR HEMOGLOBIN 32.6 PG (27.0-31.0); MEAN CORPUSCULAR HGB CONC 33.4 g/dL (33.0-36.5); MEAN CORPUSCULAR VOLUME 97.6 FL (78-98); MEAN PLATELET VOLUME 9.3 FL (7.4-10.4); MONOCYTES # (AUTO) 1.3 X10'3 (0-0.9); MONOCYTES % (AUTO) 3.3 % (2-12); NEUTROPHILS # (AUTO) 38.9 X10'3 (1.8-7.7); NEUTROPHILS % (AUTO) 95.3 % (42-75); RED BLOOD COUNT 3.37 X10'6 (4.20-5.60); RED CELL DISTRIBUTION WIDTH 14.7 % (11.5-14.5)
[2023-06-03 06:14] LABS: PLATELET COUNT 14 X10'3 (140-440); WHITE BLOOD COUNT 40.9 X10'3 (4.5-11.0)
[2023-06-03 06:18] LABS: ALANINE AMINOTRANSFERASE 31 U/L (12-78); ALBUMIN 1.9 G/DL (3.4-5.0); ALBUMIN/GLOBULIN RATIO 0.7 (1.1-1.5); ALKALINE PHOSPHATASE 140 IU/L (46-116); ANION GAP 10 (8-16); ASPARTATE AMINO TRANSFERASE 47 U/L (10-37); BILIRUBIN,TOTAL 3.1 MG/DL (0.1-1.0); BLOOD UREA NITROGEN 13 MG/DL (7-18); BUN/CREATININE RATIO 6.7 (10.0-20.0); CALCIUM 9.3 MG/DL (8.5-10.1); CHLORIDE 99 MMOL/L (99-107); CREATININE 1.93 MG/DL (0.40-0.90); GLUCOSE 79 MG/DL (70-104); MAGNESIUM 2.1 MG/DL (1.5-2.4); PHOSPHORUS 3.9 MG/DL (2.3-4.5); POTASSIUM 4.6 MMOL/L (3.5-5.1); SODIUM 133 MMOL/L (135-145); TOTAL PROTEIN 4.7 G/DL (6.4-8.2); eCRCL 28 ML/MIN; eGFR 28 ML/MIN
[2023-06-03 06:27] LABS: TOTAL CELLS COUNTED 100
[2023-06-03 06:28] LABS: PLATELET ESTIMATE DECREASED
[2023-06-03 07:16] LABS: ALLEN'S TEST POSITIVE; MODE VENT - PRVC; PATIENT TEMPERATURE 36.9
[2023-06-03 07:17] LABS: ABG BASE EXCESS -4.8 mmol/L (-2.0-2.0); ABG HCO3 20.8 mmol/L (22.0-26.0); ABG OXYGEN SATURATION 99.4 % (94-97); ABG PCO2 (T) 40.3 mmHg (32.0-45.0); ABG PH (T) 7.329 (7.350-7.450); ABG PO2 (T) 181.3 mmHg (75.0-100.0); FCOHb 0.3 % (0.0-3.9); FHHb 0.6 % (0.0-5.0); FMetHb 0.3 % (0.0-1.5); FO2Hb 98.8 % (94-97); PEEP 15 cm H2O; RESPIRATORY RATE 22 b/min; TIDAL VOLUME 375 mL
[2023-06-03 11:16] LABS: ABG BASE EXCESS -5.3 mmol/L (-2.0-2.0); ABG HCO3 19.6 mmol/L (22.0-26.0); ABG OXYGEN SATURATION 99.4 % (94-97); ABG PCO2 (T) 36.1 mmHg (32.0-45.0); ABG PH (T) 7.353 (7.350-7.450); ABG PO2 (T) 180.5 mmHg (75.0-100.0); ALLEN'S TEST POSITIVE; FCOHb 0.2 % (0.0-3.9); FHHb 0.6 % (0.0-5.0); FMetHb 0.3 % (0.0-1.5); FO2Hb 98.9 % (94-97); MODE VENT - PRVC; PEEP 15 cm H2O; RESPIRATORY RATE 22 b/min; TIDAL VOLUME 375 mL; TOTAL HEMOGLOBIN 10.9 G/dl (12.0-16.0)
[2023-06-03 12:35] LABS: EOSINOPHILS % (AUTO) 0 % (0-6); HEMOGLOBIN 9.4 g/dl (12.0-16.0); MEAN CORPUSCULAR HGB CONC 32.9 g/dL (33.0-36.5); MEAN CORPUSCULAR VOLUME 98.1 FL (78-98); MEAN PLATELET VOLUME 9.1 FL (7.4-10.4); RED BLOOD COUNT 2.91 X10'6 (4.20-5.60)
[2023-06-03 12:37] LABS: BASOPHILS # (AUTO) 0.1 X10'3 (0-0.2); BASOPHILS % (AUTO) 0.2 % (0-1); HEMATOCRIT 28.6 % (35.0-45.0); LYMPHOCYTES # (AUTO) 0.5 X10'3 (1.1-4.8); LYMPHOCYTES % (AUTO) 1.6 % (21-51); MEAN CORPUSCULAR HEMOGLOBIN 32.3 PG (27.0-31.0); MONOCYTES # (AUTO) 1.3 X10'3 (0-0.9); MONOCYTES % (AUTO) 3.9 % (2-12); NEUTROPHILS # (AUTO) 31.3 X10'3 (1.8-7.7); NEUTROPHILS % (AUTO) 94.3 % (42-75); RED CELL DISTRIBUTION WIDTH 14.6 % (11.5-14.5)
[2023-06-03 12:43] LABS: PLATELET COUNT 14 X10'3 (140-440); WHITE BLOOD COUNT 33.2 X10'3 (4.5-11.0)
[2023-06-03 12:51] LABS: ALBUMIN 1.6 G/DL (3.4-5.0); ANION GAP 8 (8-16); BLOOD UREA NITROGEN 17 MG/DL (7-18); BUN/CREATININE RATIO 8.8 (10.0-20.0); CALCIUM CVVH 8.2 MG/DL (8.5-10.1); CHLORIDE 100 MMOL/L (99-107); CREATININE 1.93 MG/DL (0.40-0.90); GLUCOSE 134 MG/DL (70-104); MAGNESIUM 1.9 MG/DL (1.5-2.4); PHOSPHORUS 3.7 MG/DL (2.3-4.5); POTASSIUM 4.5 MMOL/L (3.5-5.1); SODIUM 132 MMOL/L (135-145); TOTAL CARBON DIOXIDE 24.4 MMOL/L (24-32); eGFR 28 ML/MIN
[2023-06-03] MEDS: LIDOcaine 1%/PF 5ML 10 MG/ML VIAL ONE (13:24)
[2023-06-03] MEDS: rocuronium 10mg/ml inj IV STA (13:50)
[2023-06-03 14:55] LABS: PLATELET COUNT 16 X10'3 (140-440)
[2023-06-03 15:09] LABS: APTT 44 SECONDS (22-32); D-DIMER 17.28 MG/L FEU (0-0.50); FIBRINOGEN 319 MG/DL (177-424); INR 1.3 INR; PROTHROMBIN TIME 13.8 SECONDS (9.0-12.0)
[2023-06-03 18:07] LABS: EOSINOPHILS % (AUTO) 0 % (0-6); LYMPHOCYTES # (AUTO) 0.7 X10'3 (1.1-4.8); LYMPHOCYTES % (AUTO) 2.4 % (21-51)
[2023-06-03 18:12] LABS: BASOPHILS % (AUTO) 0.1 % (0-1); HEMATOCRIT 25.9 % (35.0-45.0); HEMOGLOBIN 8.6 g/dl (12.0-16.0); MEAN CORPUSCULAR HEMOGLOBIN 32.7 PG (27.0-31.0); MEAN CORPUSCULAR HGB CONC 33.3 g/dL (33.0-36.5); MEAN CORPUSCULAR VOLUME 98.3 FL (78-98); MEAN PLATELET VOLUME 8.7 FL (7.4-10.4); MONOCYTES # (AUTO) 0.2 X10'3 (0-0.9); MONOCYTES % (AUTO) 0.7 % (2-12); NEUTROPHILS # (AUTO) 26.2 X10'3 (1.8-7.7); NEUTROPHILS % (AUTO) 96.8 % (42-75); RED BLOOD COUNT 2.64 X10'6 (4.20-5.60); RED CELL DISTRIBUTION WIDTH 14.6 % (11.5-14.5)
[2023-06-03 18:19] LABS: ALBUMIN 1.6 G/DL (3.4-5.0); ANION GAP 9 (8-16); BLOOD UREA NITROGEN 19 MG/DL (7-18); BUN/CREATININE RATIO 10.4 (10.0-20.0); CALCIUM CVVH 7.9 MG/DL (8.5-10.1); CHLORIDE 103 MMOL/L (99-107); CREATININE 1.83 MG/DL (0.40-0.90); GLUCOSE 149 MG/DL (70-104); PHOSPHORUS 3.5 MG/DL (2.3-4.5); POTASSIUM 4.5 MMOL/L (3.5-5.1); SODIUM 136 MMOL/L (135-145); TOTAL CARBON DIOXIDE 23.8 MMOL/L (24-32); eGFR 29 ML/MIN
[2023-06-03 18:24] LABS: PLATELET COUNT 13 X10'3 (140-440); WHITE BLOOD COUNT 27.1 X10'3 (4.5-11.0)
[2023-06-03 20:03] LABS: HEMOGLOBIN A1C 5.1 % (4.5-6.2)
[2023-06-04] VITALS (36 sets, daily range): BP systolic 90–128; BP diastolic 60–87; PULSE 67–100; RESP 16–28; O2SAT 89–100
[2023-06-04 00:46] LABS: ALBUMIN 1.7 G/DL (3.4-5.0); ANION GAP 7 (8-16); BLOOD UREA NITROGEN 16 MG/DL (7-18); BUN/CREATININE RATIO 12.9 (10.0-20.0); CHLORIDE 105 MMOL/L (99-107); CREATININE 1.24 MG/DL (0.40-0.90); GLUCOSE 157 MG/DL (70-104); MAGNESIUM 1.8 MG/DL (1.5-2.4); PHOSPHORUS 2.1 MG/DL (2.3-4.5); POTASSIUM 4.3 MMOL/L (3.5-5.1); SODIUM 139 MMOL/L (135-145); TOTAL CARBON DIOXIDE 26.8 MMOL/L (24-32); eGFR 46 ML/MIN
[2023-06-04 00:49] LABS: HEMATOCRIT 25.9 % (35.0-45.0); HEMOGLOBIN 8.7 g/dl (12.0-16.0); MEAN CORPUSCULAR HEMOGLOBIN 32.8 PG (27.0-31.0); MEAN CORPUSCULAR HGB CONC 33.7 g/dL (33.0-36.5); MEAN CORPUSCULAR VOLUME 97.5 FL (78-98); MEAN PLATELET VOLUME 8.6 FL (7.4-10.4); RED BLOOD COUNT 2.66 X10'6 (4.20-5.60)
[2023-06-04 00:53] LABS: PLATELET COUNT 15 X10'3 (140-440); WHITE BLOOD COUNT 26.6 X10'3 (4.5-11.0)
[2023-06-04 02:17] LABS: PLATELET ESTIMATE DECREASED; TOTAL CELLS COUNTED 100
[2023-06-04 05:39] LABS: HEMATOCRIT 26.3 % (35.0-45.0); HEMOGLOBIN 8.7 g/dl (12.0-16.0); MEAN CORPUSCULAR HEMOGLOBIN 32.3 PG (27.0-31.0); MEAN CORPUSCULAR HGB CONC 32.9 g/dL (33.0-36.5); MEAN CORPUSCULAR VOLUME 98.3 FL (78-98); MEAN PLATELET VOLUME 8.9 FL (7.4-10.4); RED BLOOD COUNT 2.68 X10'6 (4.20-5.60); RED CELL DISTRIBUTION WIDTH 15.1 % (11.5-14.5); WHITE BLOOD COUNT 24.1 X10'3 (4.5-11.0)
[2023-06-04 05:49] LABS: ALANINE AMINOTRANSFERASE 37 U/L (12-78); ALBUMIN 1.7 G/DL (3.4-5.0); ALBUMIN/GLOBULIN RATIO 0.7 (1.1-1.5); ALKALINE PHOSPHATASE 214 IU/L (46-116); ANION GAP 6 (8-16); ASPARTATE AMINO TRANSFERASE 46 U/L (10-37); BILIRUBIN,TOTAL 2.5 MG/DL (0.1-1.0); BLOOD UREA NITROGEN 16 MG/DL (7-18); BUN/CREATININE RATIO 14.8 (10.0-20.0); CALCIUM 7.5 MG/DL (8.5-10.1); CHLORIDE 104 MMOL/L (99-107); CREATININE 1.08 MG/DL (0.40-0.90); GLUCOSE 165 MG/DL (70-104); MAGNESIUM 1.8 MG/DL (1.5-2.4); PHOSPHORUS 2.5 MG/DL (2.3-4.5); POTASSIUM 4.1 MMOL/L (3.5-5.1); SODIUM 137 MMOL/L (135-145); TOTAL CARBON DIOXIDE 27.5 MMOL/L (24-32); TOTAL PROTEIN 4.3 G/DL (6.4-8.2); eCRCL 50 ML/MIN; eGFR 54 ML/MIN
[2023-06-04 06:03] LABS: PLATELET COUNT 15 X10'3 (140-440)
[2023-06-04 06:40] LABS: PLATELET ESTIMATE DECREASED; TOTAL CELLS COUNTED 100
[2023-06-04 07:45] LABS: ABG BASE EXCESS -1.6 mmol/L (-2.0-2.0); ABG HCO3 22.5 mmol/L (22.0-26.0); ABG OXYGEN SATURATION 96.8 % (94-97); ABG PCO2 (T) 34.5 mmHg (32.0-45.0); ABG PO2 (T) 87.6 mmHg (75.0-100.0); ALLEN'S TEST POSITIVE; FCOHb 0.2 % (0.0-3.9); FHHb 3.2 % (0.0-5.0); FMetHb 0.3 % (0.0-1.5); FO2Hb 96.3 % (94-97); MODE VENT - AC/PRVC; PATIENT TEMPERATURE 36.4; PEEP 12 cm H2O; RESPIRATORY RATE 22 b/min; TIDAL VOLUME 375 mL; TOTAL HEMOGLOBIN 9.7 G/dl (12.0-16.0)
[2023-06-04 12:11] LABS: HAPTOGLOBIN 274 mg/dL (42-296)
[2023-06-04 12:11] LABS: ANTINUCLEAR ANTIBODIES Negative (Negative); ANTISTREPTOLYSIN O AB <20.0 IU/mL (0.0-200.0); COMPLEMENT C3, SERUM 58 mg/dL (82-167); COMPLEMENT C4, SERUM 25 mg/dL (12-38)
[2023-06-04 12:30] LABS: HEMOGLOBIN 7.5 g/dl (12.0-16.0); RED CELL DISTRIBUTION WIDTH 14.9 % (11.5-14.5)
[2023-06-04 12:32] LABS: HEMATOCRIT 22.8 % (35.0-45.0); MEAN CORPUSCULAR HEMOGLOBIN 32.6 PG (27.0-31.0); MEAN CORPUSCULAR HGB CONC 33.1 g/dL (33.0-36.5); MEAN CORPUSCULAR VOLUME 98.7 FL (78-98); MEAN PLATELET VOLUME 8.9 FL (7.4-10.4); RED BLOOD COUNT 2.31 X10'6 (4.20-5.60); WHITE BLOOD COUNT 18.3 X10'3 (4.5-11.0)
[2023-06-04 12:39] LABS: PLATELET COUNT 13 X10'3 (140-440)
[2023-06-04 12:49] LABS: ALBUMIN 1.4 G/DL (3.4-5.0); BLOOD UREA NITROGEN 19 MG/DL (7-18); BUN/CREATININE RATIO 17.3 (10.0-20.0); CALCIUM CVVH 6.9 MG/DL (8.5-10.1); GLUCOSE 143 MG/DL (70-104); MAGNESIUM 1.6 MG/DL (1.5-2.4); PHOSPHORUS 2.2 MG/DL (2.3-4.5); POTASSIUM 3.6 MMOL/L (3.5-5.1); SODIUM 141 MMOL/L (135-145); TOTAL CARBON DIOXIDE 24.5 MMOL/L (24-32); eGFR 53 ML/MIN
[2023-06-04 12:52] LABS: ANION GAP 8 (8-16); CHLORIDE 109 MMOL/L (99-107)
[2023-06-04 13:32] LABS: NUCLEATED RED BLOOD CELLS 2 /100WBC (0-0); TOTAL CELLS COUNTED 100
[2023-06-04 13:33] LABS: PLATELET ESTIMATE DECREASED
[2023-06-04 14:47] LABS: HEMATOCRIT 24.1 % (35.0-45.0); HEMOGLOBIN 8.1 g/dl (12.0-16.0); MEAN CORPUSCULAR HEMOGLOBIN 32.9 PG (27.0-31.0); MEAN CORPUSCULAR HGB CONC 33.8 g/dL (33.0-36.5); MEAN CORPUSCULAR VOLUME 97.5 FL (78-98); MEAN PLATELET VOLUME 8.5 FL (7.4-10.4); RED BLOOD COUNT 2.47 X10'6 (4.20-5.60); RED CELL DISTRIBUTION WIDTH 14.9 % (11.5-14.5); WHITE BLOOD COUNT 18.6 X10'3 (4.5-11.0)
[2023-06-04 14:49] LABS: PLATELET COUNT 13 X10'3 (140-440)
[2023-06-04] MEDS: heparin 1,000 units/ml 10ml inj HE ONE ×2 (15:12)
[2023-06-04] MEDS: acetaminophen 325mg tablet OGT PRN (17:07)
[2023-06-04 18:47] LABS: HBSAG SCREEN Negative (Negative)
[2023-06-05] VITALS (35 sets, daily range): BP systolic 89–136; BP diastolic 53–81; PULSE 67–100; RESP 16–26; O2SAT 92–100
[2023-06-05 03:29] LABS: BASOPHILS % (AUTO) 0.1 % (0-1); EOSINOPHILS % (AUTO) 0 % (0-6); HEMATOCRIT 23.5 % (35.0-45.0); HEMOGLOBIN 7.7 g/dl (12.0-16.0); LYMPHOCYTES # (AUTO) 0.8 X10'3 (1.1-4.8); LYMPHOCYTES % (AUTO) 4.7 % (21-51); MEAN CORPUSCULAR HEMOGLOBIN 32.3 PG (27.0-31.0); MEAN CORPUSCULAR HGB CONC 32.9 g/dL (33.0-36.5); MEAN CORPUSCULAR VOLUME 98.4 FL (78-98); MEAN PLATELET VOLUME 8.5 FL (7.4-10.4); MONOCYTES % (AUTO) 6.3 % (2-12); NEUTROPHILS # (AUTO) 14.5 X10'3 (1.8-7.7); NEUTROPHILS % (AUTO) 88.9 % (42-75); RED BLOOD COUNT 2.39 X10'6 (4.20-5.60); RED CELL DISTRIBUTION WIDTH 15.4 % (11.5-14.5); WHITE BLOOD COUNT 16.3 X10'3 (4.5-11.0)
[2023-06-05 03:35] LABS: ALANINE AMINOTRANSFERASE 43 U/L (12-78); ALBUMIN 1.7 G/DL (3.4-5.0); ALBUMIN/GLOBULIN RATIO 0.7 (1.1-1.5); ALKALINE PHOSPHATASE 280 IU/L (46-116); ANION GAP 7 (8-16); ASPARTATE AMINO TRANSFERASE 58 U/L (10-37); BILIRUBIN,TOTAL 1.7 MG/DL (0.1-1.0); BLOOD UREA NITROGEN 40 MG/DL (7-18); BUN/CREATININE RATIO 21.9 (10.0-20.0); CALCIUM 7.2 MG/DL (8.5-10.1); CHLORIDE 105 MMOL/L (99-107); CREATININE 1.83 MG/DL (0.40-0.90); GLUCOSE 134 MG/DL (70-104); MAGNESIUM 2.5 MG/DL (1.5-2.4); PHOSPHORUS 4.1 MG/DL (2.3-4.5); POTASSIUM 4.3 MMOL/L (3.5-5.1); PREALBUMIN 9.5 MG/DL (19-36); SODIUM 138 MMOL/L (135-145); TOTAL CARBON DIOXIDE 25.7 MMOL/L (24-32); TOTAL PROTEIN 4.3 G/DL (6.4-8.2); eCRCL 29 ML/MIN; eGFR 29 ML/MIN
[2023-06-05 03:42] LABS: PLATELET COUNT 16 X10'3 (140-440)
[2023-06-05 04:29] LABS: ABG BASE EXCESS -2.1 mmol/L (-2.0-2.0); ABG HCO3 22.7 mmol/L (22.0-26.0); ABG OXYGEN SATURATION 95.5 % (94-97); ABG PCO2 (T) 38.7 mmHg (32.0-45.0); ABG PH (T) 7.386 (7.350-7.450); ABG PO2 (T) 82.5 mmHg (75.0-100.0); ALLEN'S TEST Modified; FCOHb 0.4 % (0.0-3.9); FHHb 4.5 % (0.0-5.0); FMetHb 0.3 % (0.0-1.5); FO2Hb 94.8 % (94-97); MODE VENT - PRVC; PEEP 5 cm H2O; RESPIRATORY RATE 16 b/min; TIDAL VOLUME 500 mL; TOTAL HEMOGLOBIN 8.3 G/dl (12.0-16.0)
[2023-06-05] MEDS ORDERED: FENTANYL CITRATE/D5W/PF 100 ML IV SCH (13:00)
[2023-06-05] MEDS: FENTANYL 1000MCG/NS 100 ML BAG /PF IV PRN (15:57)
[2023-06-06] VITALS (43 sets, daily range): BP systolic 83–139; BP diastolic 51–81; PULSE 62–116; RESP 14–30; TEMP 98.6–99.1; O2SAT 94–100
[2023-06-06 02:44] LABS: BASOPHILS % (AUTO) 0.2 % (0-1); EOSINOPHILS % (AUTO) 0.2 % (0-6); HEMATOCRIT 22.5 % (35.0-45.0); HEMOGLOBIN 7.4 g/dl (12.0-16.0); LYMPHOCYTES % (AUTO) 6.7 % (21-51); MEAN CORPUSCULAR HEMOGLOBIN 32.6 PG (27.0-31.0); MEAN CORPUSCULAR VOLUME 98.8 FL (78-98); MONOCYTES % (AUTO) 6.5 % (2-12); NEUTROPHILS % (AUTO) 86.4 % (42-75); RED BLOOD COUNT 2.28 X10'6 (4.20-5.60); RED CELL DISTRIBUTION WIDTH 15.1 % (11.5-14.5); WHITE BLOOD COUNT 15.1 X10'3 (4.5-11.0)
[2023-06-06 02:56] LABS: ALANINE AMINOTRANSFERASE 56 U/L (12-78); ALBUMIN 1.7 G/DL (3.4-5.0); ALBUMIN/GLOBULIN RATIO 0.6 (1.1-1.5); ALKALINE PHOSPHATASE 317 IU/L (46-116); ANION GAP 11 (8-16); ASPARTATE AMINO TRANSFERASE 64 U/L (10-37); BILIRUBIN,TOTAL 1.4 MG/DL (0.1-1.0); BLOOD UREA NITROGEN 67 MG/DL (7-18); BUN/CREATININE RATIO 27.3 (10.0-20.0); CALCIUM 7.2 MG/DL (8.5-10.1); CHLORIDE 106 MMOL/L (99-107); CREATININE 2.45 MG/DL (0.40-0.90); GLUCOSE 126 MG/DL (70-104); MAGNESIUM 2.6 MG/DL (1.5-2.4); PHOSPHORUS 4.3 MG/DL (2.3-4.5); POTASSIUM 4.4 MMOL/L (3.5-5.1); SODIUM 141 MMOL/L (135-145); TOTAL CARBON DIOXIDE 24.4 MMOL/L (24-32); TOTAL PROTEIN 4.6 G/DL (6.4-8.2); eCRCL 22 ML/MIN; eGFR 21 ML/MIN
[2023-06-06 03:03] LABS: PLATELET COUNT 22 X10'3 (140-440)
[2023-06-06 03:47] LABS: NUCLEATED RED BLOOD CELLS 2 /100WBC (0-0); PLATELET ESTIMATE DECREASED; POLYCHROMASIA FEW; STOMATOCYTES 1+; TARGET CELLS FEW; TOTAL CELLS COUNTED 100
[2023-06-06 04:54] LABS: ABG BASE EXCESS -3.4 mmol/L (-2.0-2.0); ABG HCO3 20.4 mmol/L (22.0-26.0); ABG OXYGEN SATURATION 96.3 % (94-97); ABG PCO2 (T) 31.6 mmHg (32.0-45.0); ABG PH (T) 7.429 (7.350-7.450); ABG PO2 (T) 86.5 mmHg (75.0-100.0); ALLEN'S TEST Modified; FCOHb 0.5 % (0.0-3.9); FHHb 3.7 % (0.0-5.0); FMetHb 0.3 % (0.0-1.5); FO2Hb 95.5 % (94-97); PATIENT TEMPERATURE 37.1; PEEP 5 cm H2O; RESPIRATORY RATE 16 b/min; TIDAL VOLUME 500 mL
[2023-06-06] MEDS ORDERED: albumin (human) 25% 100ml IV 100 ML IV PRN (08:00)
[2023-06-06] MEDS: EPOETIN ALFA-EPBX 20,000 UNIT/ML 1 ML MDV IV ONE (12:44)
[2023-06-06] MEDS: heparin 1,000 units/ml 10ml inj HE ONE ×2 (12:45→12:46)
[2023-06-06 17:06] LABS: ATYPICAL PANCA <1:20 titer (Neg:<1:20); CYTOPLASMIC (C-ANCA) <1:20 titer (Neg:<1:20); PERINUCLEAR (P-ANCA) <1:20 titer (Neg:<1:20)
[2023-06-06] MEDS: dexmedetomidin/NS 400mcg/100ml 100 ML IV PRN (18:42)
[2023-06-07] VITALS (36 sets, daily range): BP systolic 78–130; BP diastolic 42–81; PULSE 57–117; RESP 19–36; O2SAT 92–100
[2023-06-07 03:19] LABS: HEMOGLOBIN 7.4 g/dl (12.0-16.0)
[2023-06-07 03:20] LABS: BASOPHILS # (AUTO) 0.1 X10'3 (0-0.2); BASOPHILS % (AUTO) 0.3 % (0-1); EOSINOPHILS # (AUTO) 0.1 X10'3 (0-0.9); EOSINOPHILS % (AUTO) 0.5 % (0-6); HEMATOCRIT 22.5 % (35.0-45.0); LYMPHOCYTES # (AUTO) 1.9 X10'3 (1.1-4.8); LYMPHOCYTES % (AUTO) 8.5 % (21-51); MEAN CORPUSCULAR HEMOGLOBIN 32.3 PG (27.0-31.0); MEAN CORPUSCULAR HGB CONC 32.9 g/dL (33.0-36.5); MEAN CORPUSCULAR VOLUME 98.3 FL (78-98); MEAN PLATELET VOLUME 9.7 FL (7.4-10.4); MONOCYTES # (AUTO) 0.9 X10'3 (0-0.9); MONOCYTES % (AUTO) 4.2 % (2-12); NEUTROPHILS % (AUTO) 86.5 % (42-75); PLATELET COUNT 56 X10'3 (140-440); RED BLOOD COUNT 2.29 X10'6 (4.20-5.60); RED CELL DISTRIBUTION WIDTH 15.3 % (11.5-14.5)
[2023-06-07 04:34] LABS: ALANINE AMINOTRANSFERASE 61 U/L (12-78); ALBUMIN 1.7 G/DL (3.4-5.0); ALBUMIN/GLOBULIN RATIO 0.6 (1.1-1.5); ALKALINE PHOSPHATASE 342 IU/L (46-116); ANION GAP 11 (8-16); ASPARTATE AMINO TRANSFERASE 55 U/L (10-37); BILIRUBIN,TOTAL 1.1 MG/DL (0.1-1.0); BLOOD UREA NITROGEN 57 MG/DL (7-18); BUN/CREATININE RATIO 28.8 (10.0-20.0); CALCIUM 6.9 MG/DL (8.5-10.1); CHLORIDE 104 MMOL/L (99-107); CREATININE 1.98 MG/DL (0.40-0.90); GLUCOSE 112 MG/DL (70-104); MAGNESIUM 2.1 MG/DL (1.5-2.4); PHOSPHORUS 3.8 MG/DL (2.3-4.5); POTASSIUM 4.3 MMOL/L (3.5-5.1); SODIUM 140 MMOL/L (135-145); TOTAL CARBON DIOXIDE 24.9 MMOL/L (24-32); TOTAL PROTEIN 4.7 G/DL (6.4-8.2); eCRCL 27 ML/MIN; eGFR 27 ML/MIN
[2023-06-07 04:52] LABS: ABG BASE EXCESS -1.9 mmol/L (-2.0-2.0); ABG HCO3 21.4 mmol/L (22.0-26.0); ABG OXYGEN SATURATION 99.8 % (94-97); ABG PCO2 (T) 30.5 mmHg (32.0-45.0); ABG PH (T) 7.463 (7.350-7.450); ABG PO2 (T) 340.5 mmHg (75.0-100.0); ALLEN'S TEST Modified; FCOHb 0.2 % (0.0-3.9); FHHb 0.2 % (0.0-5.0); FMetHb 0.3 % (0.0-1.5); FO2Hb 99.3 % (94-97); PATIENT TEMPERATURE 37.1; PEEP 5 cm H2O; RESPIRATORY RATE 16 b/min; TIDAL VOLUME 500 mL; TOTAL HEMOGLOBIN 8.1 G/dl (12.0-16.0)
[2023-06-07] MEDS: risperiDONE 0.5mg tablet PO SCH (15:07)
[2023-06-08] VITALS (37 sets, daily range): BP systolic 98–137; BP diastolic 58–89; PULSE 96–114; RESP 16–36; O2SAT 90–100
[2023-06-08 01:38] LABS: BASOPHILS % (AUTO) 0.2 % (0-1); EOSINOPHILS % (AUTO) 0.1 % (0-6); LYMPHOCYTES # (AUTO) 1.3 X10'3 (1.1-4.8); NEUTROPHILS % (AUTO) 90.9 % (42-75); RED BLOOD COUNT 2.36 X10'6 (4.20-5.60)
[2023-06-08 01:40] LABS: BASOPHILS # (AUTO) 0.1 X10'3 (0-0.2); HEMATOCRIT 23.4 % (35.0-45.0); HEMOGLOBIN 7.5 g/dl (12.0-16.0); LYMPHOCYTES % (AUTO) 4.9 % (21-51); MEAN CORPUSCULAR HGB CONC 32.3 g/dL (33.0-36.5); MEAN CORPUSCULAR VOLUME 99.1 FL (78-98); MEAN PLATELET VOLUME 8.9 FL (7.4-10.4); MONOCYTES % (AUTO) 3.9 % (2-12); NEUTROPHILS # (AUTO) 24.3 X10'3 (1.8-7.7); PLATELET COUNT 103 X10'3 (140-440); RED CELL DISTRIBUTION WIDTH 15.4 % (11.5-14.5)
[2023-06-08 01:45] LABS: WHITE BLOOD COUNT 26.7 X10'3 (4.5-11.0)
[2023-06-08 01:57] LABS: ALANINE AMINOTRANSFERASE 59 U/L (12-78); ALBUMIN 1.8 G/DL (3.4-5.0); ALBUMIN/GLOBULIN RATIO 0.6 (1.1-1.5); ALKALINE PHOSPHATASE 343 IU/L (46-116); ANION GAP 14 (8-16); ASPARTATE AMINO TRANSFERASE 48 U/L (10-37); BILIRUBIN,TOTAL 1.1 MG/DL (0.1-1.0); BLOOD UREA NITROGEN 78 MG/DL (7-18); BUN/CREATININE RATIO 32.4 (10.0-20.0); CALCIUM 6.9 MG/DL (8.5-10.1); CHLORIDE 105 MMOL/L (99-107); CREATININE 2.41 MG/DL (0.40-0.90); GLUCOSE 116 MG/DL (70-104); PHOSPHORUS 4.6 MG/DL (2.3-4.5); SODIUM 142 MMOL/L (135-145); TOTAL CARBON DIOXIDE 23.3 MMOL/L (24-32); TOTAL PROTEIN 4.9 G/DL (6.4-8.2); eCRCL 22 ML/MIN; eGFR 21 ML/MIN
[2023-06-08 02:46] LABS: TOTAL CELLS COUNTED 100
[2023-06-08 02:47] LABS: PLATELET ESTIMATE DECREASED
[2023-06-08 02:48] LABS: TOXIC GRANULATION 1+
[2023-06-08 02:49] LABS: HYPERSEGMENTED NEUTROPHILS FEW
[2023-06-08 02:53] LABS: ELLIPTOCYTES FEW; POIKILOCYTOSIS FEW; TARGET CELLS 1+
[2023-06-08 03:19] LABS: ABG BASE EXCESS -2.7 mmol/L (-2.0-2.0); ABG HCO3 19.5 mmol/L (22.0-26.0); ABG OXYGEN SATURATION 94.9 % (94-97); ABG PCO2 (T) 25.4 mmHg (32.0-45.0); ABG PH (T) 7.505 (7.350-7.450); ABG PO2 (T) 78.3 mmHg (75.0-100.0); ALLEN'S TEST Modified; FCOHb 0.2 % (0.0-3.9); FHHb 5.1 % (0.0-5.0); FMetHb 0.3 % (0.0-1.5); FO2Hb 94.4 % (94-97); MODE prvc; PATIENT TEMPERATURE 37.4; PEEP 5 cm H2O; RESPIRATORY RATE 16 b/min; TIDAL VOLUME 500 mL; TOTAL HEMOGLOBIN 8.5 G/dl (12.0-16.0)
[2023-06-08] MEDS: furosemide 10 MG/1 ML 10ml inj IV ONE (12:01)
[2023-06-08] MEDS: metolazone 2.5mg tablet OGT STA (13:40)
[2023-06-08] MEDS: furosemide 10 MG/1 ML 10ml inj IV SCH (18:00)
[2023-06-08] MEDS ORDERED: furosemide 10 MG/1 ML 10ml inj IV SCH (20:00)
[2023-06-08] MEDS: metolazone 2.5mg tablet OGT SCH (20:29)
[2023-06-09] VITALS (37 sets, daily range): BP systolic 83–124; BP diastolic 52–85; PULSE 65–111; RESP 9–40; O2SAT 92–98
[2023-06-09 02:44] LABS: ALANINE AMINOTRANSFERASE 51 U/L (12-78); ALBUMIN 1.9 G/DL (3.4-5.0); ALBUMIN/GLOBULIN RATIO 0.6 (1.1-1.5); ALKALINE PHOSPHATASE 310 IU/L (46-116); ANION GAP 13 (8-16); ASPARTATE AMINO TRANSFERASE 37 U/L (10-37); BLOOD UREA NITROGEN 93 MG/DL (7-18); BUN/CREATININE RATIO 35.8 (10.0-20.0); CALCIUM 7.1 MG/DL (8.5-10.1); CHLORIDE 106 MMOL/L (99-107); GLUCOSE 117 MG/DL (70-104); MAGNESIUM 2.1 MG/DL (1.5-2.4); PHOSPHORUS 6.5 MG/DL (2.3-4.5); POTASSIUM 4.3 MMOL/L (3.5-5.1); SODIUM 145 MMOL/L (135-145); TOTAL CARBON DIOXIDE 26.2 MMOL/L (24-32); TOTAL PROTEIN 5.2 G/DL (6.4-8.2); eCRCL 21 ML/MIN; eGFR 20 ML/MIN
[2023-06-09 02:48] LABS: BASOPHILS % (AUTO) 0.1 % (0-1); EOSINOPHILS % (AUTO) 0.1 % (0-6); HEMATOCRIT 23.1 % (35.0-45.0); HEMOGLOBIN 7.6 g/dl (12.0-16.0); LYMPHOCYTES # (AUTO) 1.1 X10'3 (1.1-4.8); LYMPHOCYTES % (AUTO) 4.3 % (21-51); MEAN CORPUSCULAR HEMOGLOBIN 32.3 PG (27.0-31.0); MEAN CORPUSCULAR HGB CONC 32.9 g/dL (33.0-36.5); MEAN CORPUSCULAR VOLUME 98.4 FL (78-98); MEAN PLATELET VOLUME 8.8 FL (7.4-10.4); MONOCYTES % (AUTO) 3.9 % (2-12); NEUTROPHILS % (AUTO) 91.6 % (42-75); PLATELET COUNT 124 X10'3 (140-440); RED BLOOD COUNT 2.35 X10'6 (4.20-5.60); RED CELL DISTRIBUTION WIDTH 15.3 % (11.5-14.5)
[2023-06-09 03:02] LABS: WHITE BLOOD COUNT 25.1 X10'3 (4.5-11.0)
[2023-06-09 03:21] LABS: ABG BASE EXCESS 0.4 mmol/L (-2.0-2.0); ABG HCO3 23.4 mmol/L (22.0-26.0); ABG OXYGEN SATURATION 96.3 % (94-97); ABG PCO2 (T) 31.1 mmHg (32.0-45.0); ABG PH (T) 7.494 (7.350-7.450); ABG PO2 (T) 87.5 mmHg (75.0-100.0); ALLEN'S TEST Modified; FCOHb 0.3 % (0.0-3.9); FHHb 3.7 % (0.0-5.0); FMetHb 0.3 % (0.0-1.5); FO2Hb 95.7 % (94-97); MODE prvc; PATIENT TEMPERATURE 37.1; PEEP 5 cm H2O; RESPIRATORY RATE 16 b/min; TIDAL VOLUME 500 mL; TOTAL HEMOGLOBIN 8.1 G/dl (12.0-16.0)
[2023-06-09 03:34] LABS: PLATELET ESTIMATE DECREASED; TOTAL CELLS COUNTED 100
[2023-06-09 03:43] LABS: ELLIPTOCYTES FEW; POIKILOCYTOSIS FEW; STOMATOCYTES 2+; TARGET CELLS FEW
[2023-06-09 06:59] LABS: ADAMTS13 ACTIVITY SEE COMMENTS
[2023-06-09] MEDS: dexmedetomidin/NS 400mcg/100ml 100 ML IV SCH (07:54)
[2023-06-09] MEDS: risperiDONE 2mg tablet PO SCH (08:01)
[2023-06-09] MEDS ORDERED: naloxone 0.4 mg/ml inj IV PRN (10:35)
[2023-06-09] MEDS: hydrocortisone sod succ/PF 100mg/2ml inj. IV SCH (16:22)
[2023-06-10] VITALS (18 sets, daily range): BP systolic 90–155; BP diastolic 47–76; PULSE 68–96; RESP 17–22; TEMP 99.2; O2SAT 92–100
[2023-06-10 01:43] LABS: BASOPHILS % (AUTO) 0.1 % (0-1); EOSINOPHILS % (AUTO) 0.1 % (0-6); LYMPHOCYTES # (AUTO) 0.8 X10'3 (1.1-4.8); LYMPHOCYTES % (AUTO) 4.1 % (21-51); MEAN CORPUSCULAR HEMOGLOBIN 32.5 PG (27.0-31.0); MEAN CORPUSCULAR HGB CONC 32.5 g/dL (33.0-36.5); MEAN PLATELET VOLUME 8.7 FL (7.4-10.4); MONOCYTES # (AUTO) 0.8 X10'3 (0-0.9); MONOCYTES % (AUTO) 4.5 % (2-12); NEUTROPHILS # (AUTO) 16.8 X10'3 (1.8-7.7); NEUTROPHILS % (AUTO) 91.2 % (42-75); PLATELET COUNT 130 X10'3 (140-440); RED BLOOD COUNT 2.16 X10'6 (4.20-5.60); RED CELL DISTRIBUTION WIDTH 15.6 % (11.5-14.5); WHITE BLOOD COUNT 18.4 X10'3 (4.5-11.0)
[2023-06-10 01:52] LABS: ALANINE AMINOTRANSFERASE 40 U/L (12-78); ALBUMIN 1.8 G/DL (3.4-5.0); ALBUMIN/GLOBULIN RATIO 0.6 (1.1-1.5); ALKALINE PHOSPHATASE 233 IU/L (46-116); ANION GAP 11 (8-16); ASPARTATE AMINO TRANSFERASE 23 U/L (10-37); BILIRUBIN,TOTAL 0.9 MG/DL (0.1-1.0); BLOOD UREA NITROGEN 97 MG/DL (7-18); BUN/CREATININE RATIO 38.6 (10.0-20.0); CALCIUM 6.7 MG/DL (8.5-10.1); CHLORIDE 109 MMOL/L (99-107); CREATININE 2.51 MG/DL (0.40-0.90); GLUCOSE 103 MG/DL (70-104); PHOSPHORUS 7.5 MG/DL (2.3-4.5); POTASSIUM 3.4 MMOL/L (3.5-5.1); SODIUM 147 MMOL/L (135-145); TOTAL CARBON DIOXIDE 26.6 MMOL/L (24-32); eCRCL 21 ML/MIN; eGFR 20 ML/MIN
[2023-06-10 01:53] LABS: HEMATOCRIT 21.6 % (35.0-45.0)
[2023-06-10 03:10] LABS: PLATELET ESTIMATE DECREASED; TOTAL CELLS COUNTED 100
[2023-06-10 03:13] LABS: POLYCHROMASIA FEW; STOMATOCYTES 1+
[2023-06-10 03:16] LABS: ELLIPTOCYTES FEW; TEAR DROP CELLS FEW
[2023-06-10] MEDS: ringers solution, lacted 1,000 ML IV ONE (07:43)
[2023-06-10] MEDS: quetiapine 100mg tablet PO SCH (08:47)
[2023-06-10] MEDS: hydrocortisone sod succ/PF 100mg/2ml inj. IV SCH (08:48)
[2023-06-10] MEDS: morphine 4 MG/ML inj SYRINge IV PRN (13:31)
[2023-06-11] VITALS (9 sets, daily range): BP systolic 124–160; BP diastolic 70–82; PULSE 74–92; RESP 16–18; TEMP 97.1–98.6; O2SAT 94–99
[2023-06-11 05:20] LABS: BASOPHILS % (AUTO) 0.1 % (0-1); EOSINOPHILS # (AUTO) 0.1 X10'3 (0-0.9); EOSINOPHILS % (AUTO) 0.4 % (0-6); LYMPHOCYTES # (AUTO) 0.6 X10'3 (1.1-4.8); LYMPHOCYTES % (AUTO) 3.6 % (21-51); MEAN CORPUSCULAR HEMOGLOBIN 32.6 PG (27.0-31.0); MEAN CORPUSCULAR HGB CONC 32.3 g/dL (33.0-36.5); MEAN CORPUSCULAR VOLUME 100.9 FL (78-98); MEAN PLATELET VOLUME 8.8 FL (7.4-10.4); MONOCYTES # (AUTO) 0.8 X10'3 (0-0.9); NEUTROPHILS # (AUTO) 15.2 X10'3 (1.8-7.7); NEUTROPHILS % (AUTO) 90.9 % (42-75); PLATELET COUNT 141 X10'3 (140-440); RED BLOOD COUNT 2.16 X10'6 (4.20-5.60); WHITE BLOOD COUNT 16.7 X10'3 (4.5-11.0)
[2023-06-11 05:24] LABS: HEMATOCRIT 21.8 % (35.0-45.0)
[2023-06-11 05:34] LABS: ALANINE AMINOTRANSFERASE 33 U/L (12-78); ALBUMIN 1.7 G/DL (3.4-5.0); ALBUMIN/GLOBULIN RATIO 0.5 (1.1-1.5); ALKALINE PHOSPHATASE 198 IU/L (46-116); ANION GAP 14 (8-16); ASPARTATE AMINO TRANSFERASE 13 U/L (10-37); BILIRUBIN,TOTAL 0.9 MG/DL (0.1-1.0); BLOOD UREA NITROGEN 75 MG/DL (7-18); BUN/CREATININE RATIO 33.9 (10.0-20.0); CALCIUM 6.7 MG/DL (8.5-10.1); CHLORIDE 113 MMOL/L (99-107); CREATININE 2.21 MG/DL (0.40-0.90); GLUCOSE 121 MG/DL (70-104); MAGNESIUM 1.9 MG/DL (1.5-2.4); PHOSPHORUS 5.6 MG/DL (2.3-4.5); POTASSIUM 3.3 MMOL/L (3.5-5.1); SODIUM 153 MMOL/L (135-145); TOTAL CARBON DIOXIDE 26.4 MMOL/L (24-32); TOTAL PROTEIN 5.1 G/DL (6.4-8.2); eCRCL 24 ML/MIN; eGFR 24 ML/MIN
[2023-06-11] MEDS: dextrose 5%-water 1,000 ML IV SCH (13:07)
[2023-06-12] VITALS (7 sets, daily range): BP systolic 123–162; BP diastolic 68–102; PULSE 68–99; RESP 10–21; TEMP 97.5–98.6; O2SAT 92–95
[2023-06-12 06:57] LABS: BASOPHILS % (AUTO) 0.2 % (0-1); EOSINOPHILS % (AUTO) 0.3 % (0-6); HEMATOCRIT 22.5 % (35.0-45.0); HEMOGLOBIN 7.1 g/dl (12.0-16.0); LYMPHOCYTES # (AUTO) 0.6 X10'3 (1.1-4.8); LYMPHOCYTES % (AUTO) 4.6 % (21-51); MEAN CORPUSCULAR HEMOGLOBIN 32.7 PG (27.0-31.0); MEAN CORPUSCULAR HGB CONC 31.6 g/dL (33.0-36.5); MEAN CORPUSCULAR VOLUME 103.6 FL (78-98); MEAN PLATELET VOLUME 9.7 FL (7.4-10.4); MONOCYTES # (AUTO) 0.6 X10'3 (0-0.9); MONOCYTES % (AUTO) 4.7 % (2-12); NEUTROPHILS % (AUTO) 90.2 % (42-75); PLATELET COUNT 111 X10'3 (140-440); RED BLOOD COUNT 2.17 X10'6 (4.20-5.60); RED CELL DISTRIBUTION WIDTH 15.4 % (11.5-14.5); WHITE BLOOD COUNT 13.3 X10'3 (4.5-11.0)
[2023-06-12 07:10] LABS: ALANINE AMINOTRANSFERASE 24 U/L (12-78); ALBUMIN 1.6 G/DL (3.4-5.0); ALBUMIN/GLOBULIN RATIO 0.4 (1.1-1.5); ALKALINE PHOSPHATASE 164 IU/L (46-116); ANION GAP 9 (8-16); ASPARTATE AMINO TRANSFERASE 22 U/L (10-37); BILIRUBIN,TOTAL 0.8 MG/DL (0.1-1.0); BLOOD UREA NITROGEN 51 MG/DL (7-18); BUN/CREATININE RATIO 31.9 (10.0-20.0); CALCIUM 6.4 MG/DL (8.5-10.1); CHLORIDE 111 MMOL/L (99-107); GLUCOSE 124 MG/DL (70-104); MAGNESIUM 1.7 MG/DL (1.5-2.4); PHOSPHORUS 4.3 MG/DL (2.3-4.5); PREALBUMIN 17.9 MG/DL (19-36); SODIUM 146 MMOL/L (135-145); TOTAL PROTEIN 5.2 G/DL (6.4-8.2); eCRCL 34 ML/MIN; eGFR 34 ML/MIN
[2023-06-12 07:25] LABS: POTASSIUM 2.7 MMOL/L (3.5-5.1)
[2023-06-12] MEDS: potassium chloride 10mEq ER tablet PO ONE (08:22)
[2023-06-12] MEDS: morphine 2 MG/ML inj. syringe IV PRN (14:56)
[2023-06-12] MEDS: piperacillin/tazo 3.375gm/50ml 50 ML IV SCH (15:45)
[2023-06-12] MEDS: gabapentin 300mg capsule PO SCH (21:25)
[2023-06-12] MEDS: temazepam 15mg capsule PO PRN (21:25)
[2023-06-13] VITALS (12 sets, daily range): BP systolic 118–165; BP diastolic 58–90; PULSE 68–94; RESP 14–24; TEMP 97.2–99; O2SAT 92–99
[2023-06-13 06:19] LABS: BASOPHILS % (AUTO) 0.2 % (0-1); EOSINOPHILS # (AUTO) 0.1 X10'3 (0-0.9); EOSINOPHILS % (AUTO) 0.4 % (0-6); LYMPHOCYTES # (AUTO) 0.7 X10'3 (1.1-4.8); LYMPHOCYTES % (AUTO) 5.7 % (21-51); MEAN CORPUSCULAR HEMOGLOBIN 32.8 PG (27.0-31.0); MEAN CORPUSCULAR HGB CONC 32.2 g/dL (33.0-36.5); MEAN CORPUSCULAR VOLUME 101.7 FL (78-98); MEAN PLATELET VOLUME 9.8 FL (7.4-10.4); MONOCYTES # (AUTO) 0.6 X10'3 (0-0.9); MONOCYTES % (AUTO) 4.7 % (2-12); NEUTROPHILS # (AUTO) 10.5 X10'3 (1.8-7.7); PLATELET COUNT 170 X10'3 (140-440); RED BLOOD COUNT 1.89 X10'6 (4.20-5.60); RED CELL DISTRIBUTION WIDTH 15.3 % (11.5-14.5); WHITE BLOOD COUNT 11.8 X10'3 (4.5-11.0)
[2023-06-13 06:22] LABS: HEMATOCRIT 19.2 % (35.0-45.0); HEMOGLOBIN 6.2 g/dl (12.0-16.0)
[2023-06-13 06:44] LABS: ALANINE AMINOTRANSFERASE 23 U/L (12-78); ALBUMIN 1.5 G/DL (3.4-5.0); ALBUMIN/GLOBULIN RATIO 0.4 (1.1-1.5); ALKALINE PHOSPHATASE 136 IU/L (46-116); ANION GAP 7 (8-16); ASPARTATE AMINO TRANSFERASE 23 U/L (10-37); BILIRUBIN,TOTAL 0.7 MG/DL (0.1-1.0); BLOOD UREA NITROGEN 32 MG/DL (7-18); BUN/CREATININE RATIO 23.4 (10.0-20.0); CHLORIDE 100 MMOL/L (99-107); CREATININE 1.37 MG/DL (0.40-0.90); MAGNESIUM 1.4 MG/DL (1.5-2.4); PHOSPHORUS 3.2 MG/DL (2.3-4.5); SODIUM 134 MMOL/L (135-145); TOTAL CARBON DIOXIDE 27.3 MMOL/L (24-32); TOTAL PROTEIN 4.9 G/DL (6.4-8.2); eCRCL 39 ML/MIN; eGFR 41 ML/MIN
[2023-06-13 06:50] LABS: CALCIUM 5.9 MG/DL (8.5-10.1); GLUCOSE 432 MG/DL (70-104); POTASSIUM 2.4 MMOL/L (3.5-5.1)
[2023-06-13] MEDS: acetaminophen 325mg tablet OGT PRN (07:22)
[2023-06-13] MEDS: modafinil 100mg tablet PO SCH (07:29)
[2023-06-13] MEDS ORDERED: pantoprazole 40mg Tablet.DR PO SCH (07:30)
[2023-06-13] MEDS: hydroxychloroquine 200mg tablet PO SCH (07:55)
[2023-06-13] MEDS ORDERED: magnesium 2GM in 50ml NS 50 ML IV PRN (08:35)
[2023-06-13] MEDS ORDERED: magnesium 4gm in 100ml NS 100 ML IV PRN (08:35)
[2023-06-13] MEDS ORDERED: magnesium Cl slow-release 64mg tablet PO PRN (08:35)
[2023-06-13] MEDS ORDERED: potassium Cl 40MEQ/1/2NS 520ml 520 ML IV PRN (08:35)
[2023-06-13] MEDS ORDERED: potassium Cl 20 mEq SR tablet PO PRN (08:35)
[2023-06-13] MEDS: potassium Cl 20 mEq SR tablet PO PRN (10:54)
[2023-06-13] MEDS: CALCIUM GLUC 1gm/50ml NACL,iso 100 ML IV ONE (10:54)
[2023-06-13] MEDS: rivaroxaban 20mg tablet PO SCH (20:10)
[2023-06-13] MEDS: potassium chloride 8mEq ER tablet PO SCH (20:11)
[2023-06-13] MEDS: hydrocortisone sod succ/PF 100mg/2ml inj. IV SCH (20:13)
[2023-06-14 00:22] VITALS: BP 150/82; PULSE 83; RESP 28; TEMP 99.9
[2023-06-14 01:50] VITALS: BP 155/70; PULSE 80; RESP 20; TEMP 99.5
[2023-06-14 05:00] VITALS: BP 160/74; PULSE 73; RESP 19; TEMP 98.5; O2SAT 97
[2023-06-14 06:24] LABS: ALANINE AMINOTRANSFERASE 22 U/L (12-78); ALBUMIN 1.8 G/DL (3.4-5.0); ALBUMIN/GLOBULIN RATIO 0.5 (1.1-1.5); ALKALINE PHOSPHATASE 122 IU/L (46-116); ANION GAP 13 (8-16); ASPARTATE AMINO TRANSFERASE 17 U/L (10-37); BILIRUBIN,TOTAL 1.3 MG/DL (0.1-1.0); BLOOD UREA NITROGEN 25 MG/DL (7-18); BUN/CREATININE RATIO 21.6 (10.0-20.0); CHLORIDE 109 MMOL/L (99-107); CREATININE 1.16 MG/DL (0.40-0.90); GLUCOSE 88 MG/DL (70-104); MAGNESIUM 1.5 MG/DL (1.5-2.4); PHOSPHORUS 2.6 MG/DL (2.3-4.5); SODIUM 147 MMOL/L (135-145); TOTAL CARBON DIOXIDE 24.8 MMOL/L (24-32); TOTAL PROTEIN 5.4 G/DL (6.4-8.2); eCRCL 46 ML/MIN; eGFR 50 ML/MIN
[2023-06-14 06:26] LABS: POTASSIUM 2.7 MMOL/L (3.5-5.1)
[2023-06-14 06:53] LABS: BASOPHILS # (AUTO) 0.1 X10'3 (0-0.2); BASOPHILS % (AUTO) 0.7 % (0-1); EOSINOPHILS # (AUTO) 0.2 X10'3 (0-0.9); EOSINOPHILS % (AUTO) 1.3 % (0-6); HEMATOCRIT 28.4 % (35.0-45.0); HEMOGLOBIN 9.3 g/dl (12.0-16.0); LYMPHOCYTES # (AUTO) 1.4 X10'3 (1.1-4.8); LYMPHOCYTES % (AUTO) 9.4 % (21-51); MEAN CORPUSCULAR HEMOGLOBIN 31.3 PG (27.0-31.0); MEAN CORPUSCULAR HGB CONC 32.9 g/dL (33.0-36.5); MEAN CORPUSCULAR VOLUME 95.3 FL (78-98); MEAN PLATELET VOLUME 9.6 FL (7.4-10.4); MONOCYTES # (AUTO) 0.8 X10'3 (0-0.9); MONOCYTES % (AUTO) 5.6 % (2-12); NEUTROPHILS # (AUTO) 12.3 X10'3 (1.8-7.7); PLATELET COUNT 220 X10'3 (140-440); RED BLOOD COUNT 2.98 X10'6 (4.20-5.60); RED CELL DISTRIBUTION WIDTH 16.7 % (11.5-14.5); WHITE BLOOD COUNT 14.8 X10'3 (4.5-11.0)
[2023-06-14] MEDS: meclizine 12.5mg tablet PO PRN (09:53)
[2023-06-14] MEDS: folic acid 1mg tablet PO SCH (09:54)
[2023-06-14] MEDS: thiamine 100mg tablet PO SCH (09:54)
[2023-06-14 10:00] VITALS: BP 148/75; PULSE 91; RESP 22; TEMP 98.1; O2SAT 97
[2023-06-14] MEDS ORDERED: insulin Lispro (HumaLOG) vial - multi-dose SQ SCH (15:20)
[2023-06-14] MEDS ORDERED: dextrose 50%-water 50ml dispensing syringe IV PRN (15:20)
[2023-06-14] MEDS ORDERED: glucagon, human recombinant 1mg kit SUBCUT PRN (15:20)
[2023-06-14] MEDS: MESSAGE TO PHARMACY PO ONE (15:20)
[2023-06-14] MEDS ORDERED: DEXTROSE 15 GM of carb/4 tabs (each vial/BOTTLE has 4 tablets) PO PRN ×2 (15:20)
[2023-06-14] MEDS: dextrose 5%-water 1,000 ML IV SCH (16:58)
[2023-06-14 18:00] VITALS: BP 164/88; PULSE 86; RESP 20; TEMP 97.8; O2SAT 95
[2023-06-14] MEDS: lactose-reduced food (Ensure Enlive) - 237ml bottle PO SCH (18:00)
[2023-06-14 22:00] VITALS: BP 152/84; PULSE 89; RESP 17; TEMP 98; O2SAT 96
[2023-06-15 06:00] VITALS: BP 158/74; PULSE 89; RESP 16; TEMP 98; O2SAT 96
[2023-06-15 08:00] VITALS: RESP 18; O2SAT 97
[2023-06-15] MEDS: multivitamins, therapeutics tablet PO SCH (08:05)
[2023-06-15] MEDS ORDERED: potassium Cl 40MEQ/1/2NS 520ml 520 ML IV PRN (12:25)
[2023-06-15] MEDS ORDERED: potassium Cl 20 mEq SR tablet PO PRN ×2 (12:25)
[2023-06-15] MEDS: morphine 2 MG/ML inj. syringe IV PRN ×2 (12:37→21:48)
[2023-06-15] MEDS: furosemide 20 MG/2 ML vial IV SCH (13:02)
[2023-06-15 13:31] LABS: BASOPHILS % (AUTO) 0.3 % (0-1); EOSINOPHILS # (AUTO) 0.1 X10'3 (0-0.9); EOSINOPHILS % (AUTO) 0.9 % (0-6); HEMATOCRIT 27.9 % (35.0-45.0); HEMOGLOBIN 9.2 g/dl (12.0-16.0); LYMPHOCYTES # (AUTO) 0.7 X10'3 (1.1-4.8); LYMPHOCYTES % (AUTO) 5.1 % (21-51); MEAN CORPUSCULAR HGB CONC 32.9 g/dL (33.0-36.5); MEAN PLATELET VOLUME 9.4 FL (7.4-10.4); MONOCYTES # (AUTO) 0.7 X10'3 (0-0.9); MONOCYTES % (AUTO) 4.9 % (2-12); NEUTROPHILS % (AUTO) 88.8 % (42-75); PLATELET COUNT 222 X10'3 (140-440); RED BLOOD COUNT 2.88 X10'6 (4.20-5.60); RED CELL DISTRIBUTION WIDTH 16.9 % (11.5-14.5); WHITE BLOOD COUNT 14.6 X10'3 (4.5-11.0)
[2023-06-15 13:37] LABS: ALANINE AMINOTRANSFERASE 15 U/L (12-78); ALBUMIN 1.8 G/DL (3.4-5.0); ALBUMIN/GLOBULIN RATIO 0.5 (1.1-1.5); ALKALINE PHOSPHATASE 136 IU/L (46-116); ANION GAP 9 (8-16); ASPARTATE AMINO TRANSFERASE 19 U/L (10-37); BILIRUBIN,TOTAL 0.7 MG/DL (0.1-1.0); BLOOD UREA NITROGEN 17 MG/DL (7-18); BUN/CREATININE RATIO 13.6 (10.0-20.0); CALCIUM 7.2 MG/DL (8.5-10.1); CHLORIDE 110 MMOL/L (99-107); CREATININE 1.25 MG/DL (0.40-0.90); GLUCOSE 118 MG/DL (70-104); POTASSIUM 3.7 MMOL/L (3.5-5.1); SODIUM 142 MMOL/L (135-145); TOTAL CARBON DIOXIDE 22.8 MMOL/L (24-32); TOTAL PROTEIN 5.6 G/DL (6.4-8.2); eCRCL 43 ML/MIN; eGFR 46 ML/MIN
[2023-06-15 14:30] VITALS: BP 150/69; PULSE 100; RESP 18; TEMP 98.4; O2SAT 99
[2023-06-15 15:37] LABS: OCCULT BLOOD STOOL NEGATIVE (Neg)
[2023-06-15 17:56] VITALS: BP 157/67; PULSE 98; RESP 16; TEMP 98.1; O2SAT 95
[2023-06-15] MEDS: gabapentin 300mg capsule PO SCH (19:50)
[2023-06-15 20:00] VITALS: RESP 18; O2SAT 95
[2023-06-15] MEDS: quetiapine 100mg tablet PO SCH (21:29)
[2023-06-15 21:35] VITALS: BP 144/73; PULSE 100; RESP 18; TEMP 97.9; O2SAT 99
[2023-06-16 06:00] VITALS: BP 140/73; PULSE 96; RESP 18; TEMP 97.8; O2SAT 96
[2023-06-16 08:59] VITALS: RESP 18; O2SAT 96
[2023-06-16 10:30] VITALS: BP 152/85; PULSE 99; RESP 18; TEMP 97.7; O2SAT 90
[2023-06-16 12:43] LABS: C DIFF ANTIGEN NEGATIVE (NEGATIVE); C DIFF SPECIMEN=DIARRHEA? ACCEPTABLE; C DIFFICILE TOXINS A&B NEGATIVE (Neg)
[2023-06-16 18:00] VITALS: BP 158/88; PULSE 89; RESP 16; TEMP 97.1; O2SAT 100
[2023-06-16 20:00] VITALS: RESP 20
[2023-06-16 22:00] VITALS: BP 152/85; PULSE 99; RESP 18; TEMP 97.7; O2SAT 93
[2023-06-17 07:00] VITALS: BP 148/76; PULSE 75; RESP 16; TEMP 97.6; O2SAT 94
[2023-06-17 09:00] VITALS: RESP 18; O2SAT 94
[2023-06-17 10:00] VITALS: BP 134/69; PULSE 79; RESP 18; TEMP 98.1; O2SAT 94
[2023-06-17 13:41] LABS: BASOPHILS # (AUTO) 0.1 X10'3 (0-0.2); BASOPHILS % (AUTO) 1.3 % (0-1); EOSINOPHILS # (AUTO) 0.1 X10'3 (0-0.9); EOSINOPHILS % (AUTO) 0.7 % (0-6); HEMATOCRIT 32.2 % (35.0-45.0); HEMOGLOBIN 10.5 g/dl (12.0-16.0); LYMPHOCYTES % (AUTO) 8.9 % (21-51); MEAN CORPUSCULAR HEMOGLOBIN 32.5 PG (27.0-31.0); MEAN CORPUSCULAR HGB CONC 32.7 g/dL (33.0-36.5); MEAN CORPUSCULAR VOLUME 99.5 FL (78-98); MEAN PLATELET VOLUME 9.8 FL (7.4-10.4); MONOCYTES # (AUTO) 0.6 X10'3 (0-0.9); MONOCYTES % (AUTO) 5.6 % (2-12); NEUTROPHILS # (AUTO) 8.9 X10'3 (1.8-7.7); NEUTROPHILS % (AUTO) 83.5 % (42-75); PLATELET COUNT 221 X10'3 (140-440); RED BLOOD COUNT 3.23 X10'6 (4.20-5.60); RED CELL DISTRIBUTION WIDTH 16.3 % (11.5-14.5); WHITE BLOOD COUNT 10.6 X10'3 (4.5-11.0)
[2023-06-17 14:05] LABS: ANION GAP 11 (8-16); BLOOD UREA NITROGEN 12 MG/DL (7-18); BUN/CREATININE RATIO 12.5 (10.0-20.0); CALCIUM 7.8 MG/DL (8.5-10.1); CHLORIDE 109 MMOL/L (99-107); CREATININE 0.96 MG/DL (0.40-0.90); GLUCOSE 143 MG/DL (70-104); POTASSIUM 3.3 MMOL/L (3.5-5.1); SODIUM 142 MMOL/L (135-145); eCRCL 56 ML/MIN; eGFR 62 ML/MIN
[2023-06-17 18:00] VITALS: BP 164/74; PULSE 86; RESP 20; TEMP 98.1; O2SAT 96
[2023-06-17 19:30] VITALS: RESP 16
[2023-06-17] MEDS: heparin, porcine 5000 units/ml vial SQ SCH (21:24)
[2023-06-17 22:00] VITALS: BP 132/72; PULSE 83; RESP 15; TEMP 97.7; O2SAT 99
[2023-06-18] VITALS (7 sets, daily range): BP systolic 130–156; BP diastolic 73–93; PULSE 58–94; RESP 16–18; TEMP 96.9–98.1; O2SAT 96–100
[2023-06-18] MEDS: potassium Cl 40MEQ/1/2NS 520ml 520 ML IV PRN (01:41)
[2023-06-18] MEDS: ondansetron/PF 4mg/2ml inj IV PRN (08:48)
[2023-06-18] MEDS: potassium Cl 20 mEq SR tablet PO STA (16:09)
[2023-06-18 21:42] LABS: ALANINE AMINOTRANSFERASE 17 U/L (12-78); ALBUMIN 2.1 G/DL (3.4-5.0); ALBUMIN/GLOBULIN RATIO 0.5 (1.1-1.5); ALKALINE PHOSPHATASE 114 IU/L (46-116); ANION GAP 13 (8-16); ASPARTATE AMINO TRANSFERASE 27 U/L (10-37); BILIRUBIN,TOTAL 0.4 MG/DL (0.1-1.0); BLOOD UREA NITROGEN 10 MG/DL (7-18); BUN/CREATININE RATIO 10.1 (10.0-20.0); CALCIUM 7.7 MG/DL (8.5-10.1); CHLORIDE 105 MMOL/L (99-107); CREATININE 0.99 MG/DL (0.40-0.90); GLUCOSE 111 MG/DL (70-104); SODIUM 141 MMOL/L (135-145); TOTAL CARBON DIOXIDE 23.5 MMOL/L (24-32); TOTAL PROTEIN 6.1 G/DL (6.4-8.2); eCRCL 54 ML/MIN; eGFR 60 ML/MIN
[2023-06-18 21:46] LABS: POTASSIUM 2.8 MMOL/L (3.5-5.1)
[2023-06-18] MEDS ORDERED: potassium Cl 40MEQ/1/2NS 520ml 520 ML IV PRN (22:05)
[2023-06-18] MEDS ORDERED: potassium Cl 20 mEq SR tablet PO PRN ×2 (22:05)
[2023-06-18] MEDS ORDERED: magnesium 2GM in 50ml NS 50 ML IV PRN (22:05)
[2023-06-18] MEDS ORDERED: magnesium Cl slow-release 64mg tablet PO PRN (22:05)
[2023-06-18] MEDS ORDERED: magnesium 4gm in 100ml NS 100 ML IV PRN (22:05)
[2023-06-18] MEDS: POTASSIUM BICARB 20meq eff tab 20 MEQ TABLET.EFF PO PRN (22:39)
[2023-06-19 05:50] LABS: BASOPHILS # (AUTO) 0.1 X10'3 (0-0.2); BASOPHILS % (AUTO) 0.8 % (0-1); EOSINOPHILS # (AUTO) 0.3 X10'3 (0-0.9); EOSINOPHILS % (AUTO) 3.1 % (0-6); HEMATOCRIT 26.2 % (35.0-45.0); HEMOGLOBIN 8.6 g/dl (12.0-16.0); LYMPHOCYTES # (AUTO) 1.6 X10'3 (1.1-4.8); MEAN CORPUSCULAR HEMOGLOBIN 31.6 PG (27.0-31.0); MEAN CORPUSCULAR HGB CONC 32.9 g/dL (33.0-36.5); MEAN CORPUSCULAR VOLUME 96.1 FL (78-98); MONOCYTES # (AUTO) 0.6 X10'3 (0-0.9); MONOCYTES % (AUTO) 7.2 % (2-12); NEUTROPHILS # (AUTO) 6.3 X10'3 (1.8-7.7); NEUTROPHILS % (AUTO) 70.9 % (42-75); PLATELET COUNT 205 X10'3 (140-440); RED BLOOD COUNT 2.72 X10'6 (4.20-5.60); RED CELL DISTRIBUTION WIDTH 15.6 % (11.5-14.5); WHITE BLOOD COUNT 8.8 X10'3 (4.5-11.0)
[2023-06-19 06:00] VITALS: BP 138/77; PULSE 96; RESP 16; TEMP 98.6; O2SAT 96
[2023-06-19 07:23] LABS: ALANINE AMINOTRANSFERASE 20 U/L (12-78); ALBUMIN 1.9 G/DL (3.4-5.0); ALBUMIN/GLOBULIN RATIO 0.5 (1.1-1.5); ALKALINE PHOSPHATASE 95 IU/L (46-116); ANION GAP 8 (8-16); ASPARTATE AMINO TRANSFERASE 17 U/L (10-37); BILIRUBIN,TOTAL 0.4 MG/DL (0.1-1.0); BLOOD UREA NITROGEN 10 MG/DL (7-18); CALCIUM 7.8 MG/DL (8.5-10.1); CHLORIDE 110 MMOL/L (99-107); CREATININE 0.91 MG/DL (0.40-0.90); GLUCOSE 89 MG/DL (70-104); POTASSIUM 3.9 MMOL/L (3.5-5.1); SODIUM 144 MMOL/L (135-145); TOTAL CARBON DIOXIDE 25.8 MMOL/L (24-32); TOTAL PROTEIN 5.7 G/DL (6.4-8.2); eCRCL 59 ML/MIN; eGFR 66 ML/MIN
[2023-06-19] MEDS: K and/or MAG REPLACEMENT MC SCH (08:00)
[2023-06-19 10:00] VITALS: BP 136/86; PULSE 99; RESP 20; TEMP 97.9; O2SAT 92
[2023-06-19] MEDS ORDERED: iohexol 350MG/ML 100ml bottle IV ONE (13:47)
[2023-06-19 18:00] VITALS: BP 126/69; PULSE 89; RESP 16; TEMP 97.3; O2SAT 96
[2023-06-19 22:00] VITALS: BP 111/67; PULSE 80; RESP 18; TEMP 97.8; O2SAT 96
[2023-06-20 06:00] VITALS: BP 106/61; PULSE 94; RESP 16; TEMP 98.2; O2SAT 95
[2023-06-20] MEDS ORDERED: nystatin 15 GM powder TP SCH (08:00)
[2023-06-20] MEDS: nystatin 15 GM powder TP SCH (09:05)
[2023-06-20 10:00] VITALS: BP 135/90; PULSE 97; RESP 16; TEMP 96.7; O2SAT 96
[2023-06-20 18:00] VITALS: BP 124/73; PULSE 91; RESP 18; TEMP 96.8; O2SAT 99
[2023-06-20] MEDS: HYDROcodone/acetaminophen 10/325mg tab PO PRN (19:27)
[2023-06-20 20:00] VITALS: RESP 18; O2SAT 99
[2023-06-20 22:00] VITALS: BP 98/56; PULSE 110; RESP 13; TEMP 97.9; O2SAT 99
[2023-06-21] VITALS (7 sets, daily range): BP systolic 111–139; BP diastolic 62–87; PULSE 83–106; RESP 12–18; TEMP 97.7–98.7; O2SAT 94–98
[2023-06-21 08:58] LABS: BILIRUBIN,URINE NEGATIVE (Neg); CLARITY,URINE SLIGHTLY CLOUDY (Clear); COLOR,URINE STRAW (Yellow); GLUCOSE, URINE 100 mg/dl (Neg); KETONES,URINE NEGATIVE (Neg); LEUKOCYTE ESTERASE ,URINE MODERATE (Neg); NITRITES, URINE NEGATIVE (Neg); OCCULT BLOOD,URINE TRACE-INTACT (Neg); PROTEIN,URINE NEGATIVE (Neg); UROBILINOGEN,URINE 0.2 E.U/dL (0.2-1.0)
[2023-06-21 09:01] LABS: UA COLLECTION TYPE CLN CATCH MIDSTREAM
[2023-06-21 09:36] LABS: BACTERIA,URINE 3+ /HPF (Neg); RBC,URINE 0-2 /HPF (0-2); SQUAMOUS EPITHELIAL CELL,UR FEW /LPF (FEW)
[2023-06-21] MEDS: pantoprazole 40mg Tablet.DR PO SCH (09:54)
[2023-06-21] MEDS: CefTRIAXone/D5W-Rocephin 1gm 50 ML IV ONE (15:07)
[2023-06-21 17:05] LABS: BASOPHILS # (AUTO) 0.1 X10'3 (0-0.2); EOSINOPHILS # (AUTO) 0.2 X10'3 (0-0.9); HEMATOCRIT 29.3 % (35.0-45.0); HEMOGLOBIN 9.7 g/dl (12.0-16.0); MONOCYTES # (AUTO) 0.7 X10'3 (0-0.9); RED BLOOD COUNT 3.04 X10'6 (4.20-5.60)
[2023-06-21 17:08] LABS: BASOPHILS % (AUTO) 0.7 % (0-1); EOSINOPHILS % (AUTO) 1.8 % (0-6); LYMPHOCYTES # (AUTO) 1.2 X10'3 (1.1-4.8); LYMPHOCYTES % (AUTO) 12.4 % (21-51); MEAN CORPUSCULAR HEMOGLOBIN 31.9 PG (27.0-31.0); MEAN CORPUSCULAR HGB CONC 33.2 g/dL (33.0-36.5); MEAN CORPUSCULAR VOLUME 96.2 FL (78-98); MEAN PLATELET VOLUME 9.7 FL (7.4-10.4); MONOCYTES % (AUTO) 7.3 % (2-12); NEUTROPHILS # (AUTO) 7.3 X10'3 (1.8-7.7); NEUTROPHILS % (AUTO) 77.8 % (42-75); PLATELET COUNT 214 X10'3 (140-440); RED CELL DISTRIBUTION WIDTH 15.3 % (11.5-14.5); WHITE BLOOD COUNT 9.3 X10'3 (4.5-11.0)
[2023-06-21 17:13] LABS: ALANINE AMINOTRANSFERASE 17 U/L (12-78); ALBUMIN 2.2 G/DL (3.4-5.0); ALBUMIN/GLOBULIN RATIO 0.5 (1.1-1.5); ALKALINE PHOSPHATASE 101 IU/L (46-116); ANION GAP 11 (8-16); ASPARTATE AMINO TRANSFERASE 14 U/L (10-37); BILIRUBIN,TOTAL 0.4 MG/DL (0.1-1.0); BLOOD UREA NITROGEN 11 MG/DL (7-18); CALCIUM 8.1 MG/DL (8.5-10.1); CHLORIDE 104 MMOL/L (99-107); GLUCOSE 115 MG/DL (70-104); MAGNESIUM 1.4 MG/DL (1.5-2.4); SODIUM 141 MMOL/L (135-145); TOTAL CARBON DIOXIDE 25.6 MMOL/L (24-32); TOTAL PROTEIN 6.6 G/DL (6.4-8.2); eCRCL 49 ML/MIN; eGFR 53 ML/MIN
[2023-06-21] MEDS: dextrose 50%-water 50ml dispensing syringe IV PRN (22:18)
[2023-06-22 06:57] LABS: MAGNESIUM 3.6 MG/DL (1.5-2.4); POTASSIUM 4.2 MMOL/L (3.5-5.1)
[2023-06-22 07:16] VITALS: BP 113/71; PULSE 83; RESP 17; TEMP 98.5; O2SAT 93
[2023-06-22 08:17] LABS: BASOPHILS # (AUTO) 0.1 X10'3 (0-0.2); BASOPHILS % (AUTO) 1.1 % (0-1); EOSINOPHILS % (AUTO) 0.7 % (0-6); HEMATOCRIT 27.3 % (35.0-45.0); HEMOGLOBIN 9.1 g/dl (12.0-16.0); LYMPHOCYTES # (AUTO) 0.8 X10'3 (1.1-4.8); LYMPHOCYTES % (AUTO) 11.2 % (21-51); MEAN CORPUSCULAR HEMOGLOBIN 31.8 PG (27.0-31.0); MEAN CORPUSCULAR HGB CONC 33.3 g/dL (33.0-36.5); MEAN CORPUSCULAR VOLUME 95.7 FL (78-98); MEAN PLATELET VOLUME 9.6 FL (7.4-10.4); MONOCYTES # (AUTO) 0.5 X10'3 (0-0.9); MONOCYTES % (AUTO) 6.6 % (2-12); NEUTROPHILS # (AUTO) 5.8 X10'3 (1.8-7.7); NEUTROPHILS % (AUTO) 80.4 % (42-75); PLATELET COUNT 215 X10'3 (140-440); RED BLOOD COUNT 2.86 X10'6 (4.20-5.60); RED CELL DISTRIBUTION WIDTH 15.3 % (11.5-14.5); WHITE BLOOD COUNT 7.2 X10'3 (4.5-11.0)
[2023-06-22] MEDS: CefTRIAXone/D5W-Rocephin 1gm 50 ML IV SCH (08:19)
[2023-06-22 08:45] LABS: ALANINE AMINOTRANSFERASE 17 U/L (12-78); ALBUMIN/GLOBULIN RATIO 0.5 (1.1-1.5); ALKALINE PHOSPHATASE 90 IU/L (46-116); ANION GAP 10 (8-16); ASPARTATE AMINO TRANSFERASE 19 U/L (10-37); BILIRUBIN,TOTAL 0.4 MG/DL (0.1-1.0); BLOOD UREA NITROGEN 11 MG/DL (7-18); BUN/CREATININE RATIO 12.2 (10.0-20.0); CALCIUM 8.2 MG/DL (8.5-10.1); CHLORIDE 106 MMOL/L (99-107); GLUCOSE 120 MG/DL (70-104); SODIUM 142 MMOL/L (135-145); TOTAL CARBON DIOXIDE 25.6 MMOL/L (24-32); TOTAL PROTEIN 6.4 G/DL (6.4-8.2); eCRCL 60 ML/MIN; eGFR 67 ML/MIN
[2023-06-22 10:00] VITALS: BP 126/75; PULSE 82; RESP 14; TEMP 98.7; O2SAT 97
[2023-06-22 10:38] VITALS: RESP 18; O2SAT 93
[2023-06-22] MEDS ORDERED: normal saline 1000ml 1,000 ML IV SCH (11:05)
[2023-06-22] MEDS: Potassium Cl inj 20 MEQ in normal saline 1000ml 990 ML IV SCH (11:32)
[2023-06-22] MEDS: rivaroxaban 20mg tablet PO SCH (11:33)
[2023-06-22] MEDS: fluconazole 100mg tablet PO SCH (11:33)
[2023-06-22 20:00] VITALS: RESP 18; O2SAT 93
[2023-06-22] MEDS: valacyclovir 500mg tablet PO SCH (20:51)
[2023-06-23 06:27] VITALS: BP 119/76; PULSE 102; RESP 14; TEMP 97.6; O2SAT 96
[2023-06-23 06:31] LABS: BASOPHILS # (AUTO) 0.1 X10'3 (0-0.2); BASOPHILS % (AUTO) 0.9 % (0-1); EOSINOPHILS # (AUTO) 0.4 X10'3 (0-0.9); EOSINOPHILS % (AUTO) 5.5 % (0-6); HEMATOCRIT 28.9 % (35.0-45.0); HEMOGLOBIN 9.5 g/dl (12.0-16.0); LYMPHOCYTES % (AUTO) 25.9 % (21-51); MEAN CORPUSCULAR HEMOGLOBIN 31.7 PG (27.0-31.0); MEAN CORPUSCULAR HGB CONC 32.9 g/dL (33.0-36.5); MEAN CORPUSCULAR VOLUME 96.5 FL (78-98); MEAN PLATELET VOLUME 9.2 FL (7.4-10.4); MONOCYTES # (AUTO) 0.7 X10'3 (0-0.9); NEUTROPHILS # (AUTO) 4.6 X10'3 (1.8-7.7); NEUTROPHILS % (AUTO) 58.7 % (42-75); PLATELET COUNT 233 X10'3 (140-440); RED CELL DISTRIBUTION WIDTH 15.4 % (11.5-14.5); WHITE BLOOD COUNT 7.9 X10'3 (4.5-11.0)
[2023-06-23 07:06] LABS: ANION GAP 11 (8-16); CHLORIDE 106 MMOL/L (99-107); POTASSIUM 3.6 MMOL/L (3.5-5.1); SODIUM 144 MMOL/L (135-145); TOTAL CARBON DIOXIDE 27.2 MMOL/L (24-32)
[2023-06-23] MEDS: predniSONE 5mg tablet PO SCH (07:41)
[2023-06-23 08:05] LABS: ALANINE AMINOTRANSFERASE 22 U/L (12-78); ALBUMIN 2.2 G/DL (3.4-5.0); ALBUMIN/GLOBULIN RATIO 0.5 (1.1-1.5); ALKALINE PHOSPHATASE 87 IU/L (46-116); ASPARTATE AMINO TRANSFERASE 15 U/L (10-37); BILIRUBIN,TOTAL 0.3 MG/DL (0.1-1.0); BLOOD UREA NITROGEN 11 MG/DL (7-18); BUN/CREATININE RATIO 10.3 (10.0-20.0); CALCIUM 8.2 MG/DL (8.5-10.1); CREATININE 1.07 MG/DL (0.40-0.90); GLUCOSE 92 MG/DL (70-104); TOTAL PROTEIN 6.4 G/DL (6.4-8.2); eCRCL 50 ML/MIN; eGFR 55 ML/MIN
[2023-06-23] MEDS: predniSONE 1 mg tablet PO SCH (08:12)
[2023-06-23 08:40] VITALS: RESP 18; O2SAT 98
[2023-06-23 10:00] VITALS: BP 151/92; PULSE 104; RESP 14; TEMP 97.3; O2SAT 96
[2023-06-23 18:00] VITALS: BP 135/86; PULSE 94; RESP 16; TEMP 97.3; O2SAT 94
[2023-06-23 20:00] VITALS: RESP 18; O2SAT 98
[2023-06-23] MEDS: potassium Cl 20mEq in NS 1,000 ML IV SCH (20:40)
[2023-06-23 22:00] VITALS: BP 101/59; PULSE 104; RESP 16; TEMP 97.9; O2SAT 96
[2023-06-24 02:00] VITALS: BP 128/66; PULSE 101; RESP 16; TEMP 97; O2SAT 93
[2023-06-24 06:00] VITALS: BP 124/75; PULSE 93; RESP 16; TEMP 97.8; O2SAT 94
[2023-06-24 07:18] LABS: BASOPHILS # (AUTO) 0.1 X10'3 (0-0.2); BASOPHILS % (AUTO) 0.8 % (0-1); EOSINOPHILS # (AUTO) 0.2 X10'3 (0-0.9); EOSINOPHILS % (AUTO) 2.9 % (0-6); HEMATOCRIT 27.3 % (35.0-45.0); HEMOGLOBIN 9.2 g/dl (12.0-16.0); LYMPHOCYTES # (AUTO) 2.1 X10'3 (1.1-4.8); LYMPHOCYTES % (AUTO) 26.1 % (21-51); MEAN CORPUSCULAR HEMOGLOBIN 32.2 PG (27.0-31.0); MEAN CORPUSCULAR HGB CONC 33.5 g/dL (33.0-36.5); MEAN CORPUSCULAR VOLUME 96.1 FL (78-98); MONOCYTES # (AUTO) 0.6 X10'3 (0-0.9); MONOCYTES % (AUTO) 7.8 % (2-12); NEUTROPHILS # (AUTO) 5.1 X10'3 (1.8-7.7); NEUTROPHILS % (AUTO) 62.4 % (42-75); PLATELET COUNT 233 X10'3 (140-440); RED BLOOD COUNT 2.84 X10'6 (4.20-5.60); RED CELL DISTRIBUTION WIDTH 15.2 % (11.5-14.5); WHITE BLOOD COUNT 8.2 X10'3 (4.5-11.0)
[2023-06-24 07:38] LABS: ALANINE AMINOTRANSFERASE 19 U/L (12-78); ALBUMIN 2.1 G/DL (3.4-5.0); ALBUMIN/GLOBULIN RATIO 0.5 (1.1-1.5); ALKALINE PHOSPHATASE 93 IU/L (46-116); ANION GAP 7 (8-16); ASPARTATE AMINO TRANSFERASE 19 U/L (10-37); BILIRUBIN,TOTAL 0.4 MG/DL (0.1-1.0); BLOOD UREA NITROGEN 14 MG/DL (7-18); BUN/CREATININE RATIO 12.8 (10.0-20.0); CALCIUM 7.8 MG/DL (8.5-10.1); CHLORIDE 107 MMOL/L (99-107); CREATININE 1.09 MG/DL (0.40-0.90); GLUCOSE 85 MG/DL (70-104); MAGNESIUM 1.6 MG/DL (1.5-2.4); POTASSIUM 3.3 MMOL/L (3.5-5.1); SODIUM 141 MMOL/L (135-145); TOTAL CARBON DIOXIDE 27.3 MMOL/L (24-32); TOTAL PROTEIN 6.1 G/DL (6.4-8.2); eCRCL 49 ML/MIN; eGFR 53 ML/MIN
[2023-06-24 07:50] VITALS: RESP 16; O2SAT 100
[2023-06-24 10:00] VITALS: BP 127/85; PULSE 106; RESP 16; TEMP 98.3; O2SAT 98
[2023-06-24] MEDS: POTASSIUM BICARB 20meq eff tab 20 MEQ TABLET.EFF PO PRN (18:31)
[2023-06-24 20:00] VITALS: BP 144/68; PULSE 89; RESP 18; TEMP 98.3; O2SAT 96
[2023-06-25] VITALS (7 sets, daily range): BP systolic 136–153; BP diastolic 62–82; PULSE 96–109; RESP 14–18; TEMP 97.7–98.2; O2SAT 95–98
[2023-06-25 08:24] LABS: BASOPHILS # (AUTO) 0.1 X10'3 (0-0.2); BASOPHILS % (AUTO) 1.1 % (0-1); EOSINOPHILS # (AUTO) 0.2 X10'3 (0-0.9); EOSINOPHILS % (AUTO) 3.1 % (0-6); HEMATOCRIT 31.9 % (35.0-45.0); HEMOGLOBIN 10.5 g/dl (12.0-16.0); LYMPHOCYTES # (AUTO) 2.4 X10'3 (1.1-4.8); LYMPHOCYTES % (AUTO) 29.9 % (21-51); MEAN CORPUSCULAR HEMOGLOBIN 32.2 PG (27.0-31.0); MEAN CORPUSCULAR HGB CONC 32.8 g/dL (33.0-36.5); MEAN CORPUSCULAR VOLUME 98.1 FL (78-98); MEAN PLATELET VOLUME 8.7 FL (7.4-10.4); MONOCYTES # (AUTO) 0.6 X10'3 (0-0.9); MONOCYTES % (AUTO) 7.9 % (2-12); NEUTROPHILS # (AUTO) 4.6 X10'3 (1.8-7.7); PLATELET COUNT 259 X10'3 (140-440); RED BLOOD COUNT 3.25 X10'6 (4.20-5.60); RED CELL DISTRIBUTION WIDTH 15.6 % (11.5-14.5); WHITE BLOOD COUNT 7.9 X10'3 (4.5-11.0)
[2023-06-25 08:47] LABS: ALANINE AMINOTRANSFERASE 17 U/L (12-78); ALBUMIN 2.6 G/DL (3.4-5.0); ALBUMIN/GLOBULIN RATIO 0.6 (1.1-1.5); ALKALINE PHOSPHATASE 102 IU/L (46-116); ANION GAP 11 (8-16); ASPARTATE AMINO TRANSFERASE 22 U/L (10-37); BILIRUBIN,TOTAL 0.5 MG/DL (0.1-1.0); BLOOD UREA NITROGEN 9 MG/DL (7-18); BUN/CREATININE RATIO 8.9 (10.0-20.0); CALCIUM 8.3 MG/DL (8.5-10.1); CHLORIDE 106 MMOL/L (99-107); CREATININE 1.01 MG/DL (0.40-0.90); GLUCOSE 116 MG/DL (70-104); POTASSIUM 4.2 MMOL/L (3.5-5.1); SODIUM 142 MMOL/L (135-145); TOTAL CARBON DIOXIDE 24.6 MMOL/L (24-32); TOTAL PROTEIN 6.9 G/DL (6.4-8.2); eCRCL 53 ML/MIN; eGFR 58 ML/MIN
[2023-06-25] MEDS ORDERED: FERR324T4 PO (13:27)
[2023-06-25] MEDS ORDERED: MULT-25 PO (13:27)
[2023-06-25] MEDS ORDERED: HYDR-3965 PO (13:27)
[2023-06-25] MEDS ORDERED: CIPR-259 PO (13:27)
[2023-06-25] MEDS ORDERED: ACET-1008 PO (13:30)
== END 2023-06-25 15:30 | disposition home health service (06) | DRG 720 ==
LOC: ER 02:20 → ED HOLD 14:45 → CICU 2S 19:51 → PCU 3S 06-10 20:13 → ORTHO 4S 06-10 20:15
PROVIDERS: ADMIT Internal Medicine Critical Care Medicine; ATTEND Internal Medicine Critical Care Medicine
PROC: 02HV33Z Insertion of Infusion Device into Superior Vena Cava, Percutaneous Approach (ICD-10-PCS; principal; 2023-05-31)
PROC: 5A1955Z Respiratory Ventilation, Greater than 96 Consecutive Hours (ICD-10-PCS; 2023-05-31)
PROC: 0BH17EZ Insertion of Endotracheal Airway into Trachea, Via Natural or Artificial Opening (ICD-10-PCS; 2023-05-31)
PROC: 5A09357 Assistance with Respiratory Ventilation, Less than 24 Consecutive Hours, Continuous Positive Airway Pressure (ICD-10-PCS; 2023-05-31)
PROC: 02HV33Z Insertion of Infusion Device into Superior Vena Cava, Percutaneous Approach (ICD-10-PCS; 2023-06-02)
PROC: B548ZZA Ultrasonography of Superior Vena Cava, Guidance (ICD-10-PCS; 2023-06-02)
PROC: 5A1D90Z Performance of Urinary Filtration, Continuous, Greater than 18 hours Per Day (ICD-10-PCS; 2023-06-02)
PROC: B548ZZA Ultrasonography of Superior Vena Cava, Guidance (ICD-10-PCS; 2023-06-03)
PROC: 02HV33Z Insertion of Infusion Device into Superior Vena Cava, Percutaneous Approach (ICD-10-PCS; 2023-06-03)
PROC: 5A1D90Z Performance of Urinary Filtration, Continuous, Greater than 18 hours Per Day (ICD-10-PCS; 2023-06-04)
PROC: 5A1D70Z Performance of Urinary Filtration, Intermittent, Less than 6 Hours Per Day (ICD-10-PCS; 2023-06-06)
PROC: CB121ZZ Planar Nuclear Medicine Imaging of Lungs and Bronchi using Technetium 99m (Tc-99m) (ICD-10-PCS; 2023-06-12)
PROC: 05HB33Z Insertion of Infusion Device into Right Basilic Vein, Percutaneous Approach (ICD-10-PCS; 2023-06-12)
PROC: B54MZZA Ultrasonography of Right Upper Extremity Veins, Guidance (ICD-10-PCS; 2023-06-12)
PROC: 30233N1 Transfusion of Nonautologous Red Blood Cells into Peripheral Vein, Percutaneous Approach (ICD-10-PCS; 2023-06-13)
DX: A41.51 Sepsis due to Escherichia coli [E. coli] (principal); N17.0 Acute kidney failure with tubular necrosis; J80 Acute respiratory distress syndrome; R65.21 Severe sepsis with septic shock; G93.40 Encephalopathy, unspecified; E46 Unspecified protein-calorie malnutrition; D68.9 Coagulation defect, unspecified; N18.4 Chronic kidney disease, stage 4 (severe); D53.1 Other megaloblastic anemias, not elsewhere classified; E83.51 Hypocalcemia; E87.1 Hypo-osmolality and hyponatremia; M06.9 Rheumatoid arthritis, unspecified; E87.6 Hypokalemia; E86.0 Dehydration; E87.20 Acidosis, unspecified; E66.9 Obesity, unspecified; E16.2 Hypoglycemia, unspecified; E87.0 Hyperosmolality and hypernatremia; I82.622 Acute embolism and thrombosis of deep veins of left upper extremity; I82.612 Acute embolism and thrombosis of superficial veins of left upper extremity; M32.19 Other organ or system involvement in systemic lupus erythematosus; D69.6 Thrombocytopenia, unspecified; R74.01 Elevation of levels of liver transaminase levels; E87.8 Other disorders of electrolyte and fluid balance, not elsewhere classified; D63.8 Anemia in other chronic diseases classified elsewhere; N39.0 Urinary tract infection, site not specified; Z20.822 Contact with and (suspected) exposure to COVID-19; R13.10 Dysphagia, unspecified; Z86.718 Personal history of other venous thrombosis and embolism; Z86.711 Personal history of pulmonary embolism; Z91.199 Patient's noncompliance with other medical treatment and regimen due to unspecified reason; Z87.440 Personal history of urinary (tract) infections; Z68.41 Body mass index [BMI] 40.0-44.9, adult; Z79.899 Other long term (current) drug therapy; Z99.11 Dependence on respirator [ventilator] status
CPT/HCPCS: 36410; 36415; 36430; 36600; 70450; 71045; 71046; 71250; 74018; 74176; 76770; 76937; 78582; 80048; 80053; 80069; 80305; 81001; 81025; 82272; 82310; 82436; 82570; 82595; 82607; 82728; 82803; 82948; 83010; 83036; 83540; 83550; 83605; 83615; 83690; 83735; 83880; 83935; 83970; 84100; 84132; 84133; 84134; 84145; 84156; 84300; 84484; 84540; 85007; 85018; 85025; 85027; 85379; 85384; 85397; 85610; 85651; 85730; 86038; 86060; 86140; 86160; 86256; 86430; 86885; 86900; 86901; 86920; 87040; 87045; 87046; 87070; 87077; 87081; 87088; 87186; 87324; 87340; 87449; 87502; 87503; 87811; 89055; 92508; 92616; 93005; 93306; 93971; 94002; 94003; 94640; 94660; 94760; 94799; 97110; 97116; 97161; 97530; 97535; 99285; A4314; A4333; A4615; A5200; A6212; A6213; A6222; A6223; A6250; A6258; A6402; A6446; A6449; A7015; A9539; A9540; C1751; C1752; C1758; C9113; E1594; G0257; G0378; J0330; J0610; J0696; J1100; J1200; J1644; J1720; J1815; J1940; J1953; J2020; J2060; J2250; J2270; J2405; J2543; J2704; J2765; J3010; J3411; J3475; J3480; J3490; J7030; J7040; J7042; J7050; J7060; J7070; J7120; J7512; J8597; P9016; P9045; P9047; Q4081; Q9967

== ENCOUNTER 2024-10-01 15:53 | Emergency (ER) | payer MEDICAID ==
[~2024-10-01] VITALS: Ht 162.6 cm; Wt 68.0 kg
[~2024-10-01 15:53] MED LIST changes: +CYAN10007 IM; +FERR324T4 PO; +GABA300C PO; +HYDR200T73 PO; -METO-292 PO; +MODA100T31 PO; +MULT-25 PO; +OMEP20CA16 PO; -ONDA8TAB13 PO; +PRE1T PO; +PRE5T PO; +RIVA20TA PO
[2024-10-01 15:58] VITALS: BP 140/93; PULSE 85; RESP 16; TEMP 98.4; O2SAT 100
--- NOTE | 2024-10-01 16:09 | Physician Documentation ---
History of Present Illness ~ Chief Complaint: Rib pain Stated Complaint: RIB PAIN Time Seen by MD: 16:09 Primary Medical Doctor: Fanny Rebolledo Source: patient Mode of Arrival: POV Exam Limitations: no limitations HPI 49-year-old female complaining of rib and lung pain when taking a deep breath started Friday no previous injury. Patient is concerned for pleurisy. 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 Patient states that it feels deep in the that the pain is not reproducible with palpation. Tetanus within 5 Years?: Yes Allergies: Coded Allergies: No Known Allergies (Unverified , 10/01/24) Active Prescriptions See Medication Reconciliation Form. Medication Reconciliation Scheduled Cyanocobalamin (Vitamin B-12) (Cyanocobalamin Injection), 1 MG IM Q30D, (Reported) Ferrous Sulfate (Ferrous Sulfate), 1 TAB PO DAILY Gabapentin (Neurontin), 1 CAP PO TID, (Reported) Hydroxychloroquine Sulfate* (Plaquenil*), 2 TAB PO DAILY, (Reported) Modafinil (Modafinil), 1 TAB PO DAILY, (Reported) Multivitamin with Folic Acid (Thera Tablet), 1 EACH PO DAILY Omeprazole (Omeprazole), 1 CAP PO DAILY, (Reported) Prednisone (predniSONE tablet), 4 TAB PO DAILY, (Reported) Prednisone (predniSONE tablet), 1 TAB PO DAILY, (Reported) Rivaroxaban (Xarelto), 1 TAB PO QDD, (Reported) Scheduled PRN Meclizine HCl (Meclizine HCl), 2 TAB PO TID PRN PRN for nausea/vomiting, (Reported) Past Medical History Past Medical History: Vertigo, *MUSCULOSKELETAL*, Arthritis Past Surgical History: no surgical history Alcohol Use: None Drug Use: none Lives In: Home Review of Systems All Other Systems at this time: Reviewed and Negative Respiratory: Reports: see HPI Physical Exam Vital Signs: RN Vital Signs have been reviewed: Yes, Temperature: 98.4, Heart Rate: 85, Respiratory Rate: 16, BP: 140/93, Pulse Oximetry: 100, Weight: 68.000 Oxygen Flow Rate: 0 General Appearance: alert, WD/WN, no apparent distress Cardiovascular: normal peripheral pulses, regular rate, rhythm, no edema Respiratory: lungs clear, normal breath sounds, no respiratory distress Chest: normal inspection; No: symmetrical, retractions, tender Progress Results/Orders Results/Orders Orders - JESSICA SERNA NP Chest,Two Views (10/01/24 16:06) Completed Orders - JESSICA SERNA NP Chest,Two Views (10/01/24 16:06) Vital Signs 10/01/24 15:58 Temp 98.4 Pulse 85 Resp 16 B/P (MAP) 140/93 Pulse Ox 100 O2 Flow Rate 0 Medical Decision Making Findings Speaking in full sentences no respiratory distress noted lung sounds clear no tenderness or deformity severe chest wall. Two-view chest x-ray to evaluate further. 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 Patient states she has history of lupus. Resting comfortably in the room. X-ray was unremarkable for any significant findings except you could see some bowing gas present. Discussed bowel habits and talking to primary care about her sensations that she has been experiencing more chronically than acute Differential Dx:Considerations: Include: Chest wall contusion, Pulmonary contusion, Rib fracture, Other Departure Time of Disposition: 17:06 Disposition: 01 HOME / SELF CARE / HOMELESS Impression: Primary Impression: Rib pain Condition: Stable Discharge Instructions: General Discharge Instructions Additional Instructions: Monitor gas and bowel habits stay well hydrated to see if this is the cause of your symptoms. Follow up with primary care for potential referral to Gastroenterology for further workup as desired Referrals: NO PRIMARY CARE PROVIDER (PCP) Education Educated: Patient Educated regarding: diagnosis, treatment, need for follow up Signature Scribe Signature: The note accurately reflects work and decisions made by me.Jessica PIERREP 10/01/24 16:08 Attestation: The note accurately reflects work and decisions made by me.Jessica TORRES 10/01/24 16:08 JESSICA SERNA NP Oct 01, 2024 16:09
--- NOTE | 2024-10-01 16:42 | RADIOLOGY REPORT ---
DI CHEST,TWO VIEWS CLINICAL HISTORY: CHEST PAIN COMPARISON: DI CHEST,TWO VIEWS on DOS: 06/21/23 TECHNIQUE: Frontal and lateral view of the chest was obtained FINDINGS: Lines and Tubes: None Lungs: No focal consolidation. Pleura: No effusion. No pneumothorax. Cardiomediastinal contours: Unremarkable Bones: No acute osseous abnormality. IMPRESSION: No acute cardiopulmonary disease.
== END 2024-10-01 17:13 | disposition home or self-care (01) ==
LOC: ER 15:54
DX: R07.81 Pleurodynia (principal); M19.90 Unspecified osteoarthritis, unspecified site
CPT/HCPCS: 71046; 99283

== ENCOUNTER 2025-01-22 22:13 | Emergency (ER) | payer MEDICAID ==
[~2025-01-22] VITALS: Ht 157.5 cm; Wt 56.8 kg
[2025-01-22 22:42] VITALS: BP 96/75; PULSE 74; RESP 20; TEMP 97.7; O2SAT 100
[2025-01-22] MEDS ORDERED: GUAI237S56 PO (22:52)
[2025-01-22] MEDS ORDERED: AZIT250T2 PO (22:52)
[2025-01-22] MEDS ORDERED: BENZ-38 PO (22:52)
--- NOTE | 2025-01-22 22:52 | Physician Documentation ---
History of Present Illness ~ Chief Complaint: Cold, cough & congestion Stated Complaint: FLU Time Seen by MD: 22:48 Primary Medical Doctor: Fanny Dean [facility] Source: patient Mode of Arrival: POV Exam Limitations: no limitations HPI 49-year-old female with complaints of cold cough sinus congestion for over a wee k. No objective fevers but subjective body aches and chills. No significant respiratory history or cardiac history. No shortness of breath or chest pain. Coughing is worse at night and keeps her up. Productive cough but clear phlegm. Patient did take a COVID test at home which was negative Medication Reconciliation Allergies: Coded Allergies: No Known Allergies (Unverified , 10/01/24) Scheduled Cyanocobalamin (Vitamin B-12) (Cyanocobalamin Injection), 1 MG IM Q30D, (Reported) Ferrous Sulfate (Ferrous Sulfate), 1 TAB PO DAILY Gabapentin (Neurontin), 1 CAP PO TID, (Reported) Hydroxychloroquine Sulfate* (Plaquenil*), 2 TAB PO DAILY, (Reported) Modafinil (Modafinil), 1 TAB PO DAILY, (Reported) Multivitamin with Folic Acid (Thera Tablet), 1 EACH PO DAILY Omeprazole (Omeprazole), 1 CAP PO DAILY, (Reported) Prednisone (predniSONE tablet), 4 TAB PO DAILY, (Reported) Prednisone (predniSONE tablet), 1 TAB PO DAILY, (Reported) Rivaroxaban (Xarelto), 1 TAB PO QDD, (Reported) Scheduled PRN Meclizine HCl (Meclizine HCl), 2 TAB PO TID PRN PRN for nausea/vomiting, (Reported) Past Medical History Past Medical History: Vertigo, *MUSCULOSKELETAL*, Arthritis Past Surgical History: no surgical history Alcohol Use: None Drug Use: none Lives In: Home Review of Systems All Other Systems at this time: Reviewed and Negative ENT: Reports: see HPI Respiratory: Reports: see HPI Physical Exam Physical Exam General: Alert, no apparent distress. HEENT: PERRL, EOMI, no injection, moist mucous membranes. Maxillary sinus ten derness with percussion congestion noted yellow nasal discharge Neck: Full range of motion. Respiratory: Lungs clear, no respiratory distress. Cough present during exam no wheezes rales or rhonchi Chest: No accessory muscle use. Cardiovascular: Regular rate and rhythm, no murmurs. Extremities: Normal range of motion, no deformity. Neurologic: Oriented x4. Psychiatric: Normal mood and affect. Skin: Normal color, warm and dry. No edema, no ecchymosis. Medical Decision Making Additional information obtaine: N/A Findings Yellow nasal discharge with maxillary sinus tenderness cough sinus congestion chest congestion vital signs reassuring COVID test at home negative. We will prescribe antibiotics due to the length of time and sinus discharge as well as cough medication for symptomatic treatment. Patient will follow up with the primary care Differential Dx:Considerations: Include: Allergic rhinitis, Influenza, Pneumonia, Sinusitis, URI Departure Time of Disposition: 22:50 Disposition: HOME / SELF CARE / HOMELESS Impression: Primary Impression: Sinusitis Additional Impression: Cough Condition: Stable Discharge Instructions: Cough, Adult, Sinus Infection, Adult Additional Instructions: Take antibiotics as prescribed and cough medication as needed. Tylenol or ibuprofen for [id number] pain or fevers. Monitor for any new or worsening symptoms. Rest and stay well hydrated Referrals: NO PRIMARY CARE PROVIDER (PCP) Prescriptions Guaifenesin/Dextromethorphan (Guaifenesin Dm Syrup) 100 Mg-10 Mg/5 Ml Syrup 5 ML PO Q8H for cough and congestion for 8 Days, #120 ML 0 Refills Prov: JESSICA SERNA NP 01/22/25 Benzonatate* (Benzonatate*) 100 Mg Capsule 1 CAP PO Q8H for cough for 10 Days, #30 CAP Prov: JESSICA SERNA NP 01/22/25 Azithromycin (Zithromax) 250 Mg Tablet 1 TAB PO UD for 5 Days, #6 TAB 2 the first day followed by 1 for days 2-5 Prov: JESSICA SERNA NP 01/22/25 Education Educated: Patient Educated regarding: diagnosis, treatment, need for follow up Signature Scribe Signature: No scribe Attestation: The note accurately reflects work and decisions made by me.Jessica TORRES 01/22/25 22:52 JESSICA SERNA NP Jan 22, 2025 22:52
== END 2025-01-22 23:20 | disposition home or self-care (01) ==
LOC: ER 22:14
DX: J32.9 Chronic sinusitis, unspecified (principal); M19.90 Unspecified osteoarthritis, unspecified site; Z79.899 Other long term (current) drug therapy
CPT/HCPCS: 99283